=== PATIENT | male | born 1935 | race Caucasian/White ===

== ENCOUNTER 2020-10-22 13:14 | Emergency (ER) | payer MEDICARE, SELFPAY ==
[2020-10-22 13:39] VITALS: BP 135/72; PULSE 69; RESP 16; TEMP 36.7; O2SAT 97
[2020-10-22 14:45] LABS: Basophils Absolute Auto 0.1 K/mm3 (0.0-0.1); Basophils Percent Auto 0.9 % (0.2-1.2); Eosinophils Absolute Auto 0.2 K/mm3 (0-0.3); Eosinophils Percent Auto 1.8 % (0-4.4); Hematocrit 45.5 % (42.0-52.0); Hemoglobin 14.8 g/dL (14.0-18.0); Immature Granulocyte Absolute 0.04 K/mm3 (0.00-0.031); Immature Granulocyte Percent A 0.4 % (0-0.5); Lymphocytes Absolute Auto 0.85 K/mm3 (0.9-3.2); Lymphocytes Percent Auto 9.3 % (18.3-44.2); Mean Corpuscular HGB Conc 32.5 g/dl (32-36); Mean Corpuscular Hemoglobin 29.7 pg (26-34); Mean Corpuscular Volume 91.2 fl (80-100); Monocytes Absolute Auto 1.2 K/mm3 (0.1-0.6); Monocytes Percent Auto 13.4 % (2.6-8.5); Neutrophils Absolute Auto 6.8 K/mm3 (1.3-6.7); Neutrophils Percent Auto 74.2 % (45.5-73.1); Platelet Count Result 243 k/mm3 (150-375); Red Blood Count 4.99 M/mm3 (4.6-6.20); White Blood Count 9.1 K/mm3 (4.5-10.0)
[2020-10-22 14:53] LABS: Lactic Acid Reflex 2.7 mmol/L (0.7-2.1)
[2020-10-22 15:00] LABS: Alanine Aminotransferase 16 U/L (4-50); Albumin Level 4.1 g/dL (3.5-5.1); Alkaline Phosphatase 171 U/L (38-126); Anion Gap 12 mmol/L (8-16); Aspartate Amino Transferase 41 U/L (17-59); Blood Urea Nitrogen 23 mg/dL (9-20); CRP 2.6 mg/dL (<1.0); Calcium 9.7 mg/dL (8.4-10.2); Carbon Dioxide 24 mmol/L (22-30); Chloride 102 mmol/L (98-107); Estimated CRCL calculation 56 ml/min; Estimated Glomerular Filt Rate > 60; Glucose 87 mg/dL (75-110); Potassium 4.1 mmol/L (3.4-5.0); Sodium 138 mmol/L (137-145)
[2020-10-22 15:04] LABS: NT Pro B Type Natriuretic Pept 8930 pg/mL (5-100)
--- NOTE | 2020-10-22 16:12 | ED.WOUNDLAC ---
HPI - Wound/Laceration General Chief Complaint: Wound/Laceration Stated Complaint: bilateral leg swelling Time Seen by Provider: 10/22/20 13:21 Source: patient and family Mode of arrival: ambulatory Limitations: no limitations History of Present Illness HPI narrative: 85-year-old with a history of diabetes was brought in by with complaints of ulcers to both lower extremities. Patient states that he has been having these for last several months. Has not seen his primary doctor. She denies any fever or chills. reports that the incident was initially on the right leg and now it is coming onto the left leg. No history of trauma. Onset (ago): month(s) (5) Extremity Location: Bilateral: lower leg Associated symptoms: none Related Data Allergies Allergy/AdvReac Type Severity Reaction Status Date / Time dapagliflozin Allergy Unknown increased Verified 10/22/20 13:45 blood sugar Review of Systems Review of Systems: All systems reviewed & are unremarkable except as noted in HPI and below Constitutional: Constitutional: Reports no additional constitutional complaints Eyes: Eyes: Reports no additional eye complaints ENT: Reports system reviewed and no additional complaints, except as documented Cardiovascular: Cardiovascular: Reports no additional cardiovascular complaints Respiratory: Respiratory: Reports no additional respiratory complaints Musculoskeletal: Musculoskeletal: Reports as per HPI Integumentary/Breasts: Skin/Breast: Reports as per HPI Neurologic: Reports system reviewed and no additional complaints, except as documented Endocrine: Endocrine: Reports no additional endocrine complaints PMFSH Social History Social History Social History: Smoking status: Never smoker Second hand tobacco smoke exposure: No Alcohol intake: current Drinks per week: 2 Substance use: never Substance use type: does not use Gender identity (if verbalized by the patient): Male Exam Narrative: Exam Narrative: GENERAL: Well-appearing, well-nourished, and in no acute distress. HEAD: Normocephalic, atraumatic. EYES: PERRLA and EOMI. ENT: Nares clear, no rhinorrhea or epistaxis. Mucous membranes moist. NECK: Supple. CHEST: Clear to auscultation. No respiratory distress. HEART: Regular rate and rhythm. No murmur heard. Normal peripheral pulses. ABDOMEN: Soft, nontender, nondistended, normal active bowel sounds. EXTREMITIES 3+ edema. Has multiple open wounds on the right lower extremity with yellowish crater., On the left there is 1 area which is open with serous drainage SKIN: Warm, dry, no rash. NEURO: No focal deficits. Alert and oriented x3. PSYCH: Normal mood and affect. Course Course Emergency Course: Inform patient and his family about his lab work. Wound care nurse was consulted. We did obtain wound cultures. Silver gel was applied followed by Jeff wraps on both lower extremities he is advised to follow-up with Dr. Rojas and wound care. Vital Signs Vital signs: Vital Signs Temperature 36.7 C 10/22/20 13:39 Pulse Rate 69 10/22/20 13:39 Respiratory Rate 16 10/22/20 13:39 Blood Pressure 135/72 10/22/20 13:39 Pulse Oximetry 97 10/22/20 13:39 Temperature 36.7 C 10/22/20 13:39 Pulse Rate 69 10/22/20 13:39 Respiratory Rate 16 10/22/20 13:39 Blood Pressure 135/72 10/22/20 13:39 Pulse Oximetry 97 10/22/20 13:39 MDM - Wound/Laceration Lab Data Result diagrams: 10/22/20 14:36 10/22/20 14:36 Labs: Lab Results 10/22/20 10/22/20 10/22/20 Range/Units 14:36 14:36 14:36 WBC 9.1 (4.5-10.0) K/mm3 RBC 4.99 (4.6-6.20) M/mm3 Hgb 14.8 (14.0-18.0) g/dL Hct 45.5 (42.0-52.0) % MCV 91.2 (80-100) fl MCH 29.7 (26-34) pg MCHC 32.5 (32-36) g/dl RDW 14.0 (11.5-14.5) % Plt Count 243 (150-375) k/mm3 MPV 10.0 (7.4-10.4) fl I
[2020-10-22 17:05] VITALS: BP 113/85; PULSE 87; RESP 16
[2020-10-22 17:41] LABS: Reflex Lactic Acid Yes or No Add Lactic
== END 2020-10-22 17:05 | disposition home or self-care (01) ==
PROVIDERS: Emergency Provider Family Medicine; PCP Family Medicine
DX: I83.018 Varicose veins of right lower extremity with ulcer other part of lower leg (principal); I83.028 Varicose veins of left lower extremity with ulcer other part of lower leg; L97.819 Non-pressure chronic ulcer of other part of right lower leg with unspecified severity; L97.829 Non-pressure chronic ulcer of other part of left lower leg with unspecified severity; E11.9 Type 2 diabetes mellitus without complications
CPT/HCPCS: 36415; 80053; 83605; 83880; 85025; 86140; 87040; 87070; 87077; 87205; 99282; 99283

== ENCOUNTER 2020-10-29 16:28 | Inpatient (IN) | payer MEDICARE, SELFPAY ==
--- NOTE | ~2020-10-29 | XR_ITS ---
EXAMINATION: XR tibia fibula RT 2V DATE: 10/29/2020 17:29 INDICATION: Posterior wound and weeping at the right lower leg. TECHNIQUE: AP and lateral views of the right lower leg were obtained. COMPARISON: None. FINDINGS: Bone alignment is normal. No fracture. Chondrocalcinosis at the medial and lateral compartments of th e right knee with mild tricompartmental osteoarthritis at the right knee. Additional mild osteoarthri tis at the right ankle and calcaneocuboid joints. Moderate-sized plantar calcaneal spur with mild ent hesopathic ossification at the proximal plantar aponeurosis and distal Achilles tendon. No cortical e rosions. Extensive scattered vascular calcifications extending from the popliteal artery through the arteries in the proximal to mid right calf. No soft tissue gas or radiopaque foreign bodies. Soft tis naveed swelling with skin thickening anterior and lateral to the right ankle and extending over the dors um of the foot. IMPRESSION: 1. No acute osseous abnormality, soft tissue gas or radiopaque foreign bodies. 2. Chondrocalcinosis at the right knee with mild polyarticular osteoarthritis at the right knee, ankl e and calcaneocuboid joints. Reviewed, dictated and finalized at location A. IMPRESSION: 1. No acute osseous abnormality, soft tissue gas or radiopaque foreign bodies. 2. Chondrocalcinosis at the right knee with mild polyarticular osteoarthritis a t the right knee, ankle and calcaneocuboid joints.
--- NOTE | ~2020-10-29 | XR_ITS ---
EXAMINATION: XR chest 2V DATE: 11/02/2020 15:31 INDICATION: Shortness of breath and leukocytosis TECHNIQUE: frontal and lateral views of the chest were obtained. COMPARISON: Chest radiograph dated 10/29/2020 FINDINGS: Cardiomegaly. Tiny bilateral pleural effusions along with adjacent minimal dependent atelectasis seen at the posterior sulci on the lateral projection. No pulmonary edema or pneumothorax. IMPRESSION: 1. Tiny bilateral pleural effusions with minimal dependent atelectasis in the posterior lung bases. 2. Cardiomegaly. Reviewed, dictated and finalized at location A. IMPRESSION: 1. Tiny bilateral pleural effusions with minimal dependent atelectasis in the p osterior lung bases. 2. Cardiomegaly.
--- NOTE | ~2020-10-29 | XR_ITS ---
EXAMINATION: XR chest 1V portable DATE: 10/29/2020 18:30 INDICATION: Congestive heart failure TECHNIQUE: frontal view of the chest was obtained. COMPARISON: None FINDINGS: Cardiomegaly with pulmonary vascular congestion and bilateral perihilar opacities as well as retrocar diac opacities at the left lower lung zone. No pneumothorax or definitive pleural effusion. IMPRESSION: 1. Cardiomegaly with pulmonary vascular congestion. 2. Opacities in the bilateral perihilar regions and left lower lung zone which could represent atelec tasis, pneumonia or mild pulmonary edema. Reviewed, dictated and finalized at location A. IMPRESSION: 1. Cardiomegaly with pulmonary vascular congestion. 2. Opacities in the bilateral perihilar regions and left lower lung zone which could represent atelectasis, pneumonia or mild pulmonary edema.
[2020-10-29 16:35] VITALS: BP 118/63; PULSE 74; RESP 18; TEMP 36.1; O2SAT 100
[2020-10-29 16:46] LABS: Basophils Absolute Auto 0.1 K/mm3 (0.0-0.1); Basophils Percent Auto 0.7 % (0.2-1.2); Eosinophils Absolute Auto 0.1 K/mm3 (0-0.3); Eosinophils Percent Auto 0.8 % (0-4.4); Hematocrit 46.5 % (42.0-52.0); Immature Granulocyte Absolute 0.05 K/mm3 (0.00-0.031); Immature Granulocyte Percent A 0.6 % (0-0.5); Lymphocytes Percent Auto 5.5 % (18.3-44.2); Mean Corpuscular HGB Conc 32.3 g/dl (32-36); Mean Corpuscular Hemoglobin 29.9 pg (26-34); Mean Corpuscular Volume 92.6 fl (80-100); Mean Platelet Volume 9.4 fl (7.4-10.4); Monocytes Absolute Auto 1.1 K/mm3 (0.1-0.6); Monocytes Percent Auto 11.8 % (2.6-8.5); Neutrophils Absolute Auto 7.3 K/mm3 (1.3-6.7); Neutrophils Percent Auto 80.6 % (45.5-73.1); Platelet Count Result 232 k/mm3 (150-375); Red Blood Count 5.02 M/mm3 (4.6-6.20); White Blood Count 9.1 K/mm3 (4.5-10.0)
[2020-10-29 16:57] LABS: INR 1.2; Prothrombin Time 15.5 Seconds (11.1-14.7)
--- NOTE | 2020-10-29 17:18 | ED.WOUNDLAC ---
HPI - Wound/Laceration General Chief Complaint: Wound/Laceration Stated Complaint: Sent by PCP Time Seen by Provider: 10/29/20 17:11 History of Present Illness HPI narrative: 85 yo male w/ h/o DM, htn, bph presents from home for cellulitis. He ulceration of nearly the entire right lower leg with some erythema of the surrounding skin. He reports that he was here 6 days ago for the same. He was discharged on PO antibiotics and refered to wound care. He was told that he could not go to wound care until he had gotten a referal from his PCP. He went there today and they sent him back in. The patient reports that his PCP was concerned to due lower extremity edema. He does report extensive swelling of the bilateral extremities and abdominal wall. No CP, SOB. Related Data Allergies Allergy/AdvReac Type Severity Reaction Status Date / Time dapagliflozin Allergy Unknown increased Verified 10/29/20 15:32 blood sugar Review of Systems Review of Systems: All systems reviewed & are unremarkable except as noted in HPI and below Constitutional: Constitutional: Denies chills, Denies fever(s) and Denies weakness ENT: Reports system reviewed and no additional complaints, except as documented Cardiovascular: Cardiovascular: Denies chest pain Respiratory: Respiratory: Denies dyspnea Gastrointestinal: Gastrointestinal: Denies abdominal pain, Denies nausea and Denies vomiting Genitourinary: Genitourinary: Denies hematuria and Denies dysuria Musculoskeletal: Musculoskeletal: Reports back pain Integumentary/Breasts: Skin/Breast: Reports as per HPI Neurologic: Denies dizziness and Denies weakness Endocrine: Endocrine: Denies polydipsia [facility] Past Medical History Medical History Diabetes mellitus HTN (hypertension) Social History Social History Social History: Smoking status: Never smoker Second hand tobacco smoke exposure: No Alcohol intake: current Drinks per week: 2 Substance use: never Substance use type: does not use Gender identity (if verbalized by the patient): Male Exam Const: General: no acute distress and alert Nutritional Appearance: obese Orientation/consciousness: patient oriented x3 HENMT: Head: normal to inspection Neck: Neck: normal visual inspection Chest: Chest palpation & inspection: normal inspection of the chest Resp: Effort & Inspection: normal respiratory effort Auscultation: clear to auscultation bilaterally Cardio: Rate: regular rate Rhythm: regular rhythm GI: GI Palp: Yes Soft to palpation and No Tenderness to palpation present (GI) Other: pitting edema of abdominal wall : Male General Exam: Yes edema diffuse and No perineal induration Penis: Yes erythematous and Yes Localized penile swelling present Scrotum: edematous Skin: Other: extensive erosions of right lower extremity. Sensation grossly intact. Neuro: General: patient oriented x3 and moves all extremities Course Vital Signs Vital signs: Vital Signs Temperature 36.1 C L 10/29/20 16:35 Pulse Rate 74 10/29/20 16:35 Respiratory Rate 18 10/29/20 16:35 Blood Pressure 118/63 10/29/20 16:35 Pulse Oximetry 100 10/29/20 16:35 Temperature 36.1 C L 10/29/20 16:35 Pulse Rate 74 10/29/20 19:31 Respiratory Rate 18 10/29/20 19:31 Blood Pressure 118/65 10/29/20 19:31 Pulse Oximetry 98 10/29/20 19:31 MDM - Wound/Laceration MDM Narrative Medical decision making narrative: He has extensive cellulitis of the right lower leg and anasarca. He will need admission for IV antibiotics. He would also benefit from diuresis once the infection is under better control. At this point he has a mildly elevated lactic acid, which indicates poor perfusion, so I am hesitant to give diuretics at this time. After reviewing the chest x-ray I will give him a single dose of lasix and al
[2020-10-29 17:37] LABS: Lactic Acid Reflex 2.2 mmol/L (0.7-2.1)
[2020-10-29 17:40] LABS: Anion Gap 12 mmol/L (8-16); Blood Urea Nitrogen 25 mg/dL (9-20); Calcium 9.5 mg/dL (8.4-10.2); Carbon Dioxide 24 mmol/L (22-30); Chloride 102 mmol/L (98-107); Estimated CRCL calculation 53 ml/min; Estimated Glomerular Filt Rate > 60; Glucose 142 mg/dL (75-110); Potassium 4.6 mmol/L (3.4-5.0); Sodium 138 mmol/L (137-145)
--- NOTE | 2020-10-29 17:41 | PC.NURSE ---
Pt saw PCP today, was told to come to ED for eval there's fluid on the heart , has not started at wound clinic yet. Reports BLE cellulitis, sharp pains for months , +weeping. Bilat testicles also noted to be swollen and cellulitic-appearing, Dr. Arellano aware and assessed, pt denies urinary symptoms (pt incontinent of urine and underpants were soiled on arrival, clothing removed)
[2020-10-29 17:46] LABS: NT Pro B Type Natriuretic Pept 7140 pg/mL (5-100)
--- NOTE | 2020-10-29 18:11 | PC.NURSE ---
Rn attempted IV 2x with no success.
[2020-10-29 18:38] LABS: Alanine Aminotransferase 18 U/L (4-50); Albumin Level 3.9 g/dL (3.5-5.1); Alkaline Phosphatase 175 U/L (38-126); Aspartate Amino Transferase 39 U/L (17-59); Bilirubin,Total 0.8 mg/dL (0.2-1.3)
[2020-10-29 18:50] LABS: NT Pro B Type Natriuretic Pept 7020 pg/mL (5-100); Troponin I 0.017 ng/mL (0.000-0.034)
[2020-10-29] MEDS: FUROSEMIDE INJ 40 MG/4 ML VIAL IV PUSH (19:29)
[2020-10-29 19:31] VITALS: BP 118/65; PULSE 74; RESP 18; O2SAT 98
[2020-10-29 19:44] LABS: Reflex Lactic Acid Yes or No Add Lactic
[2020-10-29 20:36] LABS: Lactic Acid 2.3 mmol/L (0.7-2.1)
--- NOTE | 2020-10-29 21:44 | ADMGEN ---
This patient, Jean-Pierre Sandra, was admitted to Medical Room 256-01. Patient/family oriented to hospital policies and general routines including ID bracelet, bed and alarms, visiting hours, pain management, procedures, bathroom and other care routines, personal items, smoking policy, room service/diet, and visiting hours. Information on how to activate the Rapid Response Team has been discussed. Patient/Family are encouraged to report perceived risks to care and to ask questions if they do not understand what they are told or what they should do.
[2020-10-29 22:00] VITALS: BP 165/81; PULSE 86; RESP 20; TEMP 36.6; O2SAT 97
[2020-10-29] MEDS: TOLNAFTATE 1% POWDER 45 GM BTL 1 APPLIC TOPICAL (22:02)
[2020-10-29 23:01] LABS: Glucose Point of Care 198 mg/dl (65-105)
[2020-10-29 23:23] VITALS: BMI 30.2
[2020-10-30] VITALS (12 sets, daily range): BP systolic 118–127; BP diastolic 62–64; PULSE 69–83; RESP 16–20; TEMP 35.9–36.3; O2SAT 92–94; BMI 30.2
--- NOTE | 2020-10-30 | ECHO_ITS ---
Patient Info Name: Jean-Pierre Sandra Age: 85 years : 1935 Gender: Male Ht: 71 in Wt: 216 lbs BSA: 2.24 m2 HR: 73 bpm BP: 124 / 62 mmHg Technical Quality: Good Exam Date: 10/30/2020 2:28 PM Exam Location: [facility] Patient Status: Inpatient Admit Date: 10/29/2020 Staff Ordering Physician: Jenaro Adam MD Surgical Garment Assembler: Kodi Weller RDCS, RT Attending Provider: Michelle Prakash PA-C Referring Physician: Kia GUZMAN; Exam Type: CA echo doppler color flow Study Info Indications R06.02 - Shortness of breath Complete two-dimensional, color flow and Doppler transthoracic echocardiogram is performed. Summary 1. Complete two-dimensional, color flow and Doppler transthoracic echocardiogram is performed. 2. Left ventricular chamber dimension is mildly enlarged. 3. Left ventricular systolic function is preserved, estimated at 50-55%. 4. There is mildly increased left ventricular wall thickness. 5. The left ventricular diastolic function is abnormal. 6. E/e' 16 is elevated. 7. Right ventricular systolic function is moderately reduced and with abnormal TAPSE 1.5 cm. 8. Right ventricular chamber dimension is moderately enlarged. 9. Left atrial chamber dimension is moderately enlarged. 10. Right atrial chamber dimension is moderately enlarged. 11. There is moderate aortic valve sclerosis. 12. There is mild aortic valve stenosis with a peak velocity of 254 cm/s, mean gradient of 7 mmHg, and aortic valve area of 1.4 cm2. 13. There is no aortic valve regurgitation. 14. The mitral valve has moderately calcified annulus. 15. There is mild mitral valve regurgitation. 16. The tricuspid valve leaflets are mildly thickened. 17. There is moderate tricuspid valve regurgitation. 18. Severe pulmonary hypertension, estimated pulmonary arterial systolic pressure is 67 mmHg. 19. Dilated inferior vena cava with <50% collapse upon inspiration consistent with significantly elevated right atrial pressure, 15 mmHg. 20. There is trivial pericardial effusion. Left Ventricle E/e' 16 is elevated. Left ventricular chamber dimension is mildly enlarged. Left ventricular systolic function is preserved, estimated at 50-55%. There is mildly increased left ventricular wall thickness. The left ventricular diastolic function is abnormal. Right Ventricle Right ventricular systolic function is moderately reduced and with abnormal TAPSE 1.5 cm. Right ventricular chamber dimension is moderately enlarged. Left Atria Left atrial chamber dimension is moderately enlarged. Right Atria Right atrial chamber dimension is moderately enlarged. Aortic Valve The aortic valve is trileaflet. There is moderate aortic valve sclerosis. There is mild aortic valve stenosis with a peak velocity of 254 cm/s, mean gradient of 7 mmHg, and aortic valve area of 1.4 cm2. There is no aortic valve regurgitation. Pulmonic Valve There is no pulmonic regurgitation. Mitral Valve The mitral valve has moderately calcified annulus. There is no mitral valve stenosis. There is mild mitral valve regurgitation. Tricuspid Valve The tricuspid valve leaflets are mildly thickened. There is moderate tricuspid valve regurgitation. Severe pulmonary hypertension, estimated pulmonary arterial systolic pressure is 67 mmHg. Pericardium/Pleural There is trivial pericardial effusion. Inferior Vena Cava Dilated inferior vena cava with <50% collapse upon inspiration consistent with significantly elevated right a
[2020-10-30] MEDS: HYDROcodone/acetaminophen (*CRX) 7.5-325 MG TABLET 1 TAB PO ×2 (01:01→21:07)
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
[2020-10-30 07:53] LABS: Glucose Point of Care 132 mg/dl (65-105)
[2020-10-30] MEDS: amLODIPine BESYLATE 5 MG TABLET PO (08:00)
[2020-10-30] MEDS: lisinopriL 10 MG TABLET PO (08:00)
[2020-10-30] MEDS: FUROSEMIDE INJ 40 MG/4 ML VIAL IV PUSH ×2 (08:00→16:35)
[2020-10-30] MEDS: TAMSULOSIN HCL 0.4 MG CAPSULE PO (08:00)
[2020-10-30 09:10] LABS: Hemoglobin A1C 6.1 % (<5.7)
[2020-10-30] MEDS: INSULIN ASPART (*BKC) 100 UNITS/ML SUB-Q ×3 (09:18→18:07)
[2020-10-30] MEDS: SILVERGEL (ELTA) 45 ML 1 APPLIC TOPICAL (12:41)
[2020-10-30 12:49] LABS: Basophils Percent Auto 0.4 % (0.2-1.2); Eosinophils Percent Auto 0.3 % (0-4.4); Hematocrit 43.6 % (42.0-52.0); Hemoglobin 14.2 g/dL (14.0-18.0); Immature Granulocyte Absolute 0.06 K/mm3 (0.00-0.031); Immature Granulocyte Percent A 0.6 % (0-0.5); Lymphocytes Absolute Auto 0.44 K/mm3 (0.9-3.2); Lymphocytes Percent Auto 4.5 % (18.3-44.2); Mean Corpuscular HGB Conc 32.6 g/dl (32-36); Mean Corpuscular Hemoglobin 29.9 pg (26-34); Mean Corpuscular Volume 91.8 fl (80-100); Mean Platelet Volume 9.7 fl (7.4-10.4); Monocytes Absolute Auto 1.3 K/mm3 (0.1-0.6); Monocytes Percent Auto 12.9 % (2.6-8.5); Neutrophils Percent Auto 81.3 % (45.5-73.1); Platelet Count Result 222 k/mm3 (150-375); Red Blood Count 4.75 M/mm3 (4.6-6.20); White Blood Count 9.8 K/mm3 (4.5-10.0)
[2020-10-30 13:02] LABS: Alanine Aminotransferase 16 U/L (4-50); Albumin Level 3.8 g/dL (3.5-5.1); Alkaline Phosphatase 155 U/L (38-126); Anion Gap 12 mmol/L (8-16); Aspartate Amino Transferase 35 U/L (17-59); Bilirubin,Total 1.1 mg/dL (0.2-1.3); Blood Urea Nitrogen 21 mg/dL (9-20); Calcium 9.4 mg/dL (8.4-10.2); Carbon Dioxide 25 mmol/L (22-30); Chloride 101 mmol/L (98-107); Estimated CRCL calculation 65 ml/min; Estimated Glomerular Filt Rate > 60; Glucose 111 mg/dL (75-110); Potassium 3.7 mmol/L (3.4-5.0); Sodium 138 mmol/L (137-145)
[2020-10-30 13:05] LABS: Lactic Acid Reflex 1.8 mmol/L (0.7-2.1)
[2020-10-30 13:11] LABS: Glucose Point of Care 95 mg/dl (65-105)
--- NOTE | 2020-10-30 13:29 | ECG_ITS ---
Measurements Intervals [place] Rate: 73 P: VA: 0 QRS: -83 QRSD: 164 T: 154 QT: 466 QTc: 514 Interpretive Statements ACCELERATED JUNCTIONAL RHYTHM ATRIAL PREMATURE COMPLEXES LEFT AXIS DEVIATION RIGHT BUNDLE BRANCH BLOCK ABNORMAL ECG Electronically Signed On 10-30-2020 14:05:59 CDT by Kan Sampson D.O.
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
[2020-10-30 14:04] LABS: Magnesium 1.8 mg/dL (1.6-2.3)
--- NOTE | 2020-10-30 15:47 | PCOTNOTE ---
OT evaluation attempted. Patient declining therapy at this time, but agreeable to attempting tomorrow AM. Will attempt OT evaluation at later time.
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
[2020-10-30] MEDS: ENOXAPARIN 100 MG/ML SYRINGE SUB-Q (16:36)
[2020-10-30 17:53] LABS: Glucose Point of Care 101 mg/dl (65-105)
[2020-10-30 22:15] LABS: Glucose Point of Care 78 mg/dl (65-105)
[2020-10-31] VITALS (9 sets, daily range): BP systolic 105–124; BP diastolic 51–61; PULSE 60–88; RESP 18–22; TEMP 35.9–36.4; O2SAT 92–97
[2020-10-31] MEDS: ENOXAPARIN 100 MG/ML SYRINGE SUB-Q ×2 (01:11→14:59)
--- NOTE | 2020-10-31 01:12 | PCRCNOTE ---
Patient took off apnealink. Patient refuses to wear it.
[2020-10-31] MEDS: HYDROcodone/acetaminophen (*CRX) 7.5-325 MG TABLET 1 TAB PO (05:32)
[2020-10-31 05:46] LABS: Basophils Absolute Auto 0.1 K/mm3 (0.0-0.1); Basophils Percent Auto 0.9 % (0.2-1.2); Eosinophils Absolute Auto 0.1 K/mm3 (0-0.3); Eosinophils Percent Auto 0.5 % (0-4.4); Hematocrit 37.3 % (42.0-52.0); Hemoglobin 12.2 g/dL (14.0-18.0); Immature Granulocyte Absolute 0.07 K/mm3 (0.00-0.031); Immature Granulocyte Percent A 0.7 % (0-0.5); Lymphocytes Absolute Auto 0.89 K/mm3 (0.9-3.2); Lymphocytes Percent Auto 8.9 % (18.3-44.2); Mean Corpuscular HGB Conc 32.7 g/dl (32-36); Mean Corpuscular Volume 91.6 fl (80-100); Mean Platelet Volume 9.8 fl (7.4-10.4); Monocytes Absolute Auto 1.4 K/mm3 (0.1-0.6); Monocytes Percent Auto 14.3 % (2.6-8.5); Neutrophils Absolute Auto 7.5 K/mm3 (1.3-6.7); Neutrophils Percent Auto 74.7 % (45.5-73.1); Platelet Count Result 214 k/mm3 (150-375); Red Blood Count 4.07 M/mm3 (4.6-6.20); Red Cell Distribution Width 13.9 % (11.5-14.5)
[2020-10-31 05:53] LABS: Lactic Acid Reflex 1.2 mmol/L (0.7-2.1)
[2020-10-31 06:01] LABS: Alanine Aminotransferase 14 U/L (4-50); Alkaline Phosphatase 124 U/L (38-126); Anion Gap 7 mmol/L (8-16); Aspartate Amino Transferase 29 U/L (17-59); Blood Urea Nitrogen 27 mg/dL (9-20); CRP 3.7 mg/dL (<1.0); Calcium 8.7 mg/dL (8.4-10.2); Carbon Dioxide 27 mmol/L (22-30); Chloride 101 mmol/L (98-107); Estimated CRCL calculation 65 ml/min; Estimated Glomerular Filt Rate > 60; Glucose 106 mg/dL (75-110); Magnesium 1.6 mg/dL (1.6-2.3); Potassium 3.7 mmol/L (3.4-5.0); Sodium 135 mmol/L (137-145)
[2020-10-31 08:09] LABS: Glucose Point of Care 103 mg/dl (65-105)
[2020-10-31] MEDS: TAMSULOSIN HCL 0.4 MG CAPSULE PO (09:53)
[2020-10-31] MEDS: amLODIPine BESYLATE 5 MG TABLET PO (09:54)
[2020-10-31] MEDS: SILVERGEL (ELTA) 45 ML 1 APPLIC TOPICAL (09:54)
[2020-10-31] MEDS: FUROSEMIDE INJ 40 MG/4 ML VIAL IV PUSH ×2 (09:54→17:12)
[2020-10-31] MEDS: lisinopriL 10 MG TABLET PO (09:54)
[2020-10-31] MEDS: INSULIN ASPART (*BKC) 100 UNITS/ML SUB-Q ×3 (09:57→17:44)
[2020-10-31] MEDS: MAGNESIUM SULF 2 GM/WATER 50ML 2 GM/50 ML BAG IVPB (10:20)
[2020-10-31 12:35] LABS: Glucose Point of Care 119 mg/dl (65-105)
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
--- NOTE | 2020-10-31 15:38 | PM.PNCARD ---
Progress Note: A&P Assessment and Plan (1) Atrial fibrillation: Code(s): I48.91 - Unspecified atrial fibrillation <RADHA Chin - Last Filed: 10/31/20 16:04> Status: Acute <RADHA Chin - Last Filed: 10/31/20 16:04> Assessment and Plan: Atrial fibrillation with underlying RBBB new diagnosis, chronicity unknown. asymptomatic. Heart rate controlled without AV coby blocking agents suggestive underlying conduction system disease. CHADS2 Vasc score 5. Systemic anticoagulation advised. No plans for LE wound debridement - will initiate coumadin today as Eliquis and Xarelto are prohibitively expensive for the patient. <RADHA Chin - Last Filed: 10/31/20 16:04> (2) Heart failure with preserved ejection fraction: Code(s): I50.30 - Unspecified diastolic (congestive) heart failure <RADHA Chin - Last Filed: 10/31/20 16:04> Status: Acute <RADHA Chin - Last Filed: 10/31/20 16:04> Assessment and Plan: EF lower limits normal 50-55%. Moderate left atrial enlargement. Continue Cautious intravenous diuresis. Monitor electrolytes and renal function closely. Avoid NSAIDs. 2 g daily sodium intake. Monitor volume status closely, avoid intravascular volume depletion. symptoms are largely right-sided with evidence of severe pulmonary hypertension. <RADHA Chin - Last Filed: 10/31/20 16:04> (3) NSVT (nonsustained ventricular tachycardia): Code(s): I47.2 - Ventricular tachycardia <RADHA Chin - Last Filed: 10/31/20 16:04> Status: Acute <RADHA Chin - Last Filed: 10/31/20 16:04> Assessment and Plan: No VT noted on telemetry overnight. Continue to monitor electrolytes. Continue telemetry. <RADHA Chin - Last Filed: 10/31/20 16:04> (4) Pulmonary hypertension: Code(s): I27.20 - Pulmonary hypertension, unspecified <RADHA Chin - Last Filed: 10/31/20 16:04> Status: Acute <RADHA Chin - Last Filed: 10/31/20 16:04> Assessment and Plan: Severe. Etiology not precisely clear. Heart rate control with atrial fibrillation with lower limits normal LV function. Apnea link showed high risk for sleep disorder. Patient is to pursue sleep study as outpatient. <RADHA Chin - Last Filed: 10/31/20 16:04> (5) Cellulitis of right lower leg: Code(s): L03.115 - Cellulitis of right lower limb <RADHA Chin - Last Filed: 10/31/20 16:04> Status: Acute <RADHA Chin - Last Filed: 10/31/20 16:04> Assessment and Plan: Per primary service. <RADHA Chin - Last Filed: 10/31/20 16:04> (6) Essential (primary) hypertension: Code(s): I10 - Essential (primary) hypertension <RADHA Chin - Last Filed: 10/31/20 16:04> Status: Acute <RADHA Chin - Last Filed: 10/31/20 16:04> Assessment and Plan: Controlled at present. continue medical therapy. <RADHA Chin - Last Filed: 10/31/20 16:04> (7) Diabetes mellitus: Code(s): E11.9 - Type 2 diabetes mellitus without complications <RADHA Chin - Last Filed: 10/31/20 16:04> Status: Acute <RADHA Chin - Last Filed: 10/31/20 16:04> Assessment and Plan: Per primary service. <RADHA Chin - Last Filed: 10/31/20 16:04> Additional Plan Attending addendum: I agree with the above documentation and plan of care as outlined. <Garrett York MD - Last Filed: 10/31/20 17:55> Subjective Date/time seen: 10/31/20 15:38 <Yana Hernandez APN-Masoud - Last Filed: 10/31/20 16:04> Interval history: Cardiology follow up for atrial fibrillation Date of service 10/31/20: Patient is drowsy today - nods off during conversation. at the bedside. I had a lengthy conversat
[2020-10-31 16:13] LABS: INR 1.3
[2020-10-31] MEDS: WARFARIN (*PBKC) 2 MG TABLET PO (17:12)
[2020-10-31 17:44] LABS: Glucose Point of Care 139 mg/dl (65-105)
[2020-10-31 20:55] LABS: Glucose Point of Care 182 mg/dl (65-105)
[2020-10-31 21:27] LABS: Vancomycin Trough 10.4 ug/mL (10.0-20.0)
[2020-10-31 23:57] LABS: Hematocrit 29.1 % (42.0-52.0); Hemoglobin 9.6 g/dL (14.0-18.0)
[2020-11-01] VITALS (17 sets, daily range): BP systolic 102–137; BP diastolic 42–90; PULSE 70–91; RESP 17–24; TEMP 36–37.2; O2SAT 92–99
--- NOTE | 2020-11-01 00:47 | PC.NURSE ---
Stat H&H called to [facility].
[2020-11-01 00:57] LABS: IFOB Positive Control Positive; Immunochemical Fecal Occult Bl Positive (N)
[2020-11-01 04:39] LABS: Basophils Absolute Auto 0.1 K/mm3 (0.0-0.1); Basophils Percent Auto 0.4 % (0.2-1.2); Eosinophils Percent Auto 0.3 % (0-4.4); Hematocrit 26.5 % (42.0-52.0); Hemoglobin 8.8 g/dL (14.0-18.0); Immature Granulocyte Percent A 0.8 % (0-0.5); Lymphocytes Absolute Auto 1.25 K/mm3 (0.9-3.2); Lymphocytes Percent Auto 9.9 % (18.3-44.2); Mean Corpuscular HGB Conc 33.2 g/dl (32-36); Mean Corpuscular Hemoglobin 30.3 pg (26-34); Mean Corpuscular Volume 91.4 fl (80-100); Mean Platelet Volume 9.9 fl (7.4-10.4); Monocytes Absolute Auto 1.7 K/mm3 (0.1-0.6); Monocytes Percent Auto 13.4 % (2.6-8.5); Neutrophils Absolute Auto 9.5 K/mm3 (1.3-6.7); Neutrophils Percent Auto 75.2 % (45.5-73.1); Platelet Count Result 228 k/mm3 (150-375); Red Cell Distribution Width 13.7 % (11.5-14.5); White Blood Count 12.7 K/mm3 (4.5-10.0)
[2020-11-01 04:51] LABS: INR 1.4
[2020-11-01 05:01] LABS: Anion Gap 6 mmol/L (8-16); Blood Urea Nitrogen 49 mg/dL (9-20); CRP 3.8 mg/dL (<1.0); Calcium 8.2 mg/dL (8.4-10.2); Carbon Dioxide 27 mmol/L (22-30); Chloride 104 mmol/L (98-107); Estimated CRCL calculation 82 ml/min; Estimated Glomerular Filt Rate > 60; Glucose 152 mg/dL (75-110); Potassium 3.2 mmol/L (3.4-5.0); Sodium 137 mmol/L (137-145)
[2020-11-01 08:46] LABS: Magnesium 1.7 mg/dL (1.6-2.3)
[2020-11-01 09:14] LABS: Glucose Point of Care 185 mg/dl (65-105)
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
[2020-11-01] MEDS: PANTOPRAZOLE SODIUM IV 40 MG VIAL IV PUSH ×2 (10:04→21:16)
[2020-11-01] MEDS: SODIUM CHLORIDE 0.9% IV 250 ML 30 ML IV CONT (10:04)
[2020-11-01] MEDS: SILVERGEL (ELTA) 45 ML 1 APPLIC TOPICAL (10:05)
[2020-11-01] MEDS: FUROSEMIDE INJ 40 MG/4 ML VIAL IV PUSH ×2 (10:05→17:36)
--- NOTE | 2020-11-01 10:30 | PC.NURSE ---
To GI Lab per JOSSELINE smith intact. Report given to Alejandrina.
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
[2020-11-01] MEDS: LACTATED RINGERS 1,000 ML 150 ML IV CONT (11:04)
--- NOTE | 2020-11-01 11:10 | PCOTNOTE ---
11:10 a.m. 11/01/20: Attempted therapy session; Patient out of room; Per nursing patient off floor for procedure in GI lab; follow up as appropriate for occupational therapy session at later time/date.
--- NOTE | 2020-11-01 11:11 | WPDANESEPPF ---
Anes - Initial Pre Proc Eval Procedure: Operation Date: 11/01/20 12:30 Proposed Procedures p Esophagogastroduodenoscopy - Nicholas Waters MD Date/Time: 11/01/20 11:11 Surgeon: Michelle Prakash PA-C Pre Op Diagnosis: Cellulitis, Genital Yeast Infection, Anasarca Patient Data Age: 85 Gender: M Height: 5 ft 11 in Weight: 98.1 kg Last Vital Signs Temp 97.5 F L 11/01/20 10:53 Pulse 90 11/01/20 10:53 Resp 22 H 11/01/20 10:53 BP 137/60 11/01/20 10:53 Pulse Ox 97 11/01/20 10:53 Allergies Allergy/AdvReac Type Severity Reaction Status Date / Time dapagliflozin Allergy Unknown increased Verified 11/01/20 10:51 blood sugar Home Medications Medication Instructions Recorded Confirmed Type lancets #50 each 01/12/20 10/29/20 Rx blood sugar diagnostic #50 each 02/02/20 10/29/20 Rx sitagliptin 100 mg tablet 100 mg PO DAILY #30 tablet 02/02/20 10/29/20 Rx amoxicillin 500 mg-potassium 1 tablet PO Q12H #20 tablet 10/24/20 10/29/20 Rx clavulanate 125 mg tablet amlodipine [Norvasc] 5 mg PO DAILY 10/29/20 10/29/20 History benazepril [Lotensin] 10 mg PO DAILY 10/29/20 10/29/20 History glimepiride [Amaryl] 1 mg PO QAM 10/29/20 10/29/20 History ibuprofen [Advil] 100 mg PO BID PRN 10/29/20 10/29/20 History metformin [Glucophage] 1,000 mg PO BID 10/29/20 10/29/20 History silver [BasaDrox] 1 applic TOPICAL Q3D 10/29/20 10/29/20 History tamsulosin [Flomax] 0.4 mg PO DAILY 10/29/20 10/29/20 History Laboratory Tests 10/31/20 10/31/20 10/31/20 12:33 15:43 17:41 WBC RBC Hgb Hct MCV MCH MCHC RDW Plt Count MPV Immature Gran % (Auto) Neut % (Auto) Lymph % (Auto) [place] % (Auto) Eos % (Auto) Baso % (Auto) Lymph # (Auto) [place] # (Auto) Eos # (Auto) Baso # (Auto) Abs Immat Gran (auto) Absolute Neuts (auto) Absolute Nucleated RBC Nucleated RBC % PT 17.0 Seconds H Seconds (11.1-14.7) INR 1.3 Sodium Potassium Chloride Carbon Dioxide Anion Gap BUN Creatinine Estim Creat Clear Calc Estimated GFR Glucose POC Capillary Glucose 119 mg/dl H mg/dl 139 mg/dl H mg/dl (65-105) (65-105) Calcium Magnesium C-Reactive Protein Stl Occult Blood (IFOB) Vancomycin Trough Blood Type Antibody Screen Crossmatch 10/31/20 10/31/20 10/31/20 19:54 20:53 23:46 WBC RBC Hgb Hct MCV MCH MCHC RDW Plt Count MPV Immature Gran % (Auto) Neut % (Auto) Lymph % (Auto) [place] % (Auto) Eos % (Auto) Baso % (Auto) Lymph # (Auto) [place] # (Auto) Eos # (Auto) Baso # (Auto) Abs Immat Gran (auto) Absolute Neuts (auto) Absolute Nucleated RBC Nucleated RBC % PT INR Sodium Potassium Chloride Carbon Dioxide Anion Gap BUN Creatinine Estim Creat Clear Calc Estimated GFR Glucose POC Capillary Glucose 182 mg/dl H mg/dl (65-105) Calcium Magnesium C-Reactive Protein Stl Occult Blood (IFOB) Positive H (N) Vancomycin Trough 10.4 ug/mL ug/mL (10.0-20.0) Blood Type Antibody Screen Cros
[2020-11-01 11:13] LABS: Glucose Point of Care 205 mg/dl (65-105)
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
--- NOTE | 2020-11-01 12:53 | PC.NURSE ---
Returned from GI Lab. Report received from FILIBERTO Collazo.
[2020-11-01] MEDS: amLODIPine BESYLATE 5 MG TABLET PO (13:14)
[2020-11-01] MEDS: TAMSULOSIN HCL 0.4 MG CAPSULE PO (13:14)
[2020-11-01] MEDS: lisinopriL 10 MG TABLET PO (13:14)
[2020-11-01] MEDS: INSULIN ASPART (*BKC) 100 UNITS/ML SUB-Q ×3 (13:15→17:34)
[2020-11-01 13:21] LABS: Hematocrit 28.9 % (42.0-52.0); Hemoglobin 9.3 g/dL (14.0-18.0)
[2020-11-01 13:22] LABS: Glucose Point of Care 216 mg/dl (65-105)
[2020-11-01 13:45] LABS: Magnesium 1.7 mg/dL (1.6-2.3)
--- NOTE | 2020-11-01 16:48 | PM.PNCARD ---
Progress Note: A&P Assessment and Plan (1) Atrial fibrillation: Code(s): I48.91 - Unspecified atrial fibrillation <RADHA Chin - Last Filed: 11/01/20 16:59> Status: Acute <Yana TobyRADHA Solomon - Last Filed: 11/01/20 16:59> Assessment and Plan: Atrial fibrillation with underlying RBBB new diagnosis, chronicity unknown. asymptomatic. Heart rate controlled without AV coby blocking agents suggestive underlying conduction system disease. CHADS2 Vasc score 5. Systemic anticoagulation advised. Warfarin held due to drop in H&H and finding of multiple ulcers on EGD today. Per GI recs, anticoagulation to be held for several weeks to allow ulcers to heal. <RADHA Chin - Last Filed: 11/01/20 16:59> (2) Heart failure with preserved ejection fraction: Code(s): I50.30 - Unspecified diastolic (congestive) heart failure <RADHA Chin - Last Filed: 11/01/20 16:59> Status: Acute <RADHA Chin - Last Filed: 11/01/20 16:59> Assessment and Plan: EF lower limits normal 50-55%. Moderate left atrial enlargement. Continue cautious intravenous diuresis. Monitor electrolytes and renal function closely. Avoid NSAIDs. 2 g daily sodium intake. Monitor volume status closely, avoid intravascular volume depletion. symptoms are largely right-sided with evidence of severe pulmonary hypertension. <RADHA Chin - Last Filed: 11/01/20 16:59> (3) NSVT (nonsustained ventricular tachycardia): Code(s): I47.2 - Ventricular tachycardia <RADHA Chin - Last Filed: 11/01/20 16:59> Status: Acute <RADHA Chin - Last Filed: 11/01/20 16:59> Assessment and Plan: No VT noted on telemetry overnight. Continue to monitor electrolytes. Continue telemetry. <RADHA Chin - Last Filed: 11/01/20 16:59> (4) Pulmonary hypertension: Code(s): I27.20 - Pulmonary hypertension, unspecified <RADHA Chin - Last Filed: 11/01/20 16:59> Status: Acute <RADHA Chin - Last Filed: 11/01/20 16:59> Assessment and Plan: Severe. Etiology not precisely clear. Heart rate control with atrial fibrillation with lower limits normal LV function. Apnea link showed high risk for sleep disorder. Patient is to pursue sleep study as outpatient. <RADHA Chin - Last Filed: 11/01/20 16:59> (5) Cellulitis of right lower leg: Code(s): L03.115 - Cellulitis of right lower limb <RADHA Chin - Last Filed: 11/01/20 16:59> Status: Acute <RADHA Chin - Last Filed: 11/01/20 16:59> Assessment and Plan: Per primary service. <RADHA Chin - Last Filed: 11/01/20 16:59> (6) Essential (primary) hypertension: Code(s): I10 - Essential (primary) hypertension <RADHA Chin - Last Filed: 11/01/20 16:59> Status: Acute <RADHA Chin - Last Filed: 11/01/20 16:59> Assessment and Plan: Controlled at present. continue medical therapy. <RADHA Chin - Last Filed: 11/01/20 16:59> (7) Diabetes mellitus: Code(s): E11.9 - Type 2 diabetes mellitus without complications <RADHA Chin - Last Filed: 11/01/20 16:59> Status: Acute <RADHA Chin - Last Filed: 11/01/20 16:59> Assessment and Plan: Per primary service. <RADHA Chin - Last Filed: 11/01/20 16:59> Additional Plan Attending addendum: I have personally seen and examined the patient at bedside. I agree with the above documentation and plan of care as outlined. H&H significantly declined over the past 48 hours. Endoscopy today duodenal ulcers recommendation to delay anticoagulation for several weeks to allow the ulcerations to he will avoid aspirin and NSAIDs. Protonix 40 mg b.i.d.. No chest pain., patient denies shortness of breath. Byron
[2020-11-01 17:23] LABS: Glucose Point of Care 170 mg/dl (65-105)
[2020-11-01 21:18] LABS: Glucose Point of Care 184 mg/dl (65-105)
[2020-11-02] VITALS (9 sets, daily range): BP systolic 102–124; BP diastolic 50–59; PULSE 62–85; RESP 16–18; TEMP 36.1–36.7; O2SAT 95–99
[2020-11-02 05:51] LABS: Hematocrit 26.2 % (42.0-52.0); Hemoglobin 8.7 g/dL (14.0-18.0); Mean Corpuscular HGB Conc 33.2 g/dl (32-36); Mean Corpuscular Hemoglobin 29.8 pg (26-34); Mean Corpuscular Volume 89.7 fl (80-100); Mean Platelet Volume 9.9 fl (7.4-10.4); Platelet Count Result 212 k/mm3 (150-375); Red Blood Count 2.92 M/mm3 (4.6-6.20); Red Cell Distribution Width 14.6 % (11.5-14.5); White Blood Count 13.2 K/mm3 (4.5-10.0)
[2020-11-02 06:05] LABS: Anion Gap 7 mmol/L (8-16); Blood Urea Nitrogen 35 mg/dL (9-20); Calcium 8.1 mg/dL (8.4-10.2); Carbon Dioxide 29 mmol/L (22-30); Chloride 105 mmol/L (98-107); Estimated CRCL calculation 82 ml/min; Estimated Glomerular Filt Rate > 60; Glucose 169 mg/dL (75-110); Magnesium 1.6 mg/dL (1.6-2.3); Potassium 2.5 mmol/L (3.4-5.0); Sodium 141 mmol/L (137-145)
--- NOTE | 2020-11-02 08:56 | PM.PNCARD ---
Progress Note: A&P Assessment and Plan (1) Atrial fibrillation: Code(s): I48.91 - Unspecified atrial fibrillation Status: Acute Assessment and Plan: Atrial fibrillation with underlying RBBB new diagnosis, chronicity unknown. asymptomatic. Heart rate controlled without AV coby blocking agents suggestive underlying conduction system disease. CHADS2 Vasc score 5. Systemic anticoagulation advised. Warfarin held due to drop in H&H and finding of multiple ulcers on EGD today. Per GI recs, anticoagulation to be held for several weeks to allow ulcers to heal. (2) Heart failure with preserved ejection fraction: Code(s): I50.30 - Unspecified diastolic (congestive) heart failure Status: Acute Assessment and Plan: EF lower limits normal 50-55%. Moderate left atrial enlargement. Continue cautious intravenous diuresis. Monitor electrolytes and renal function closely. Avoid NSAIDs. 2 g daily sodium intake. Monitor volume status closely, avoid intravascular volume depletion. symptoms are largely right-sided with evidence of severe pulmonary hypertension. Will reduce his diuretics to furosemide 40 mg IV daily from twice daily (3) NSVT (nonsustained ventricular tachycardia): Code(s): I47.2 - Ventricular tachycardia Status: Acute Assessment and Plan: No VT noted on telemetry overnight. Continue to monitor electrolytes. Continue telemetry. (4) Pulmonary hypertension: Code(s): I27.20 - Pulmonary hypertension, unspecified Status: Acute Assessment and Plan: Severe. Etiology not precisely clear. Heart rate control with atrial fibrillation with lower limits normal LV function. Apnea link showed high risk for sleep disorder. Patient is to pursue sleep study as outpatient. (5) Cellulitis of right lower leg: Code(s): L03.115 - Cellulitis of right lower limb Status: Acute Assessment and Plan: Per primary service. (6) Essential (primary) hypertension: Code(s): I10 - Essential (primary) hypertension Status: Acute Assessment and Plan: Controlled at present. continue medical therapy. (7) Diabetes mellitus: Code(s): E11.9 - Type 2 diabetes mellitus without complications Status: Acute Assessment and Plan: Per primary service. Additional Plan Significant electrolyte imbalance which is being replaced appropriately by the hospitalist Subjective Date/time seen: 11/02/20 08:56 Interval history: Cardiology follow-up for atrial fibrillation. Date of service 11/01/2020: Patient is feeling weak today. He developed melena last night and continued to have melenic stools throughout the night. GI was consulted and he went to the GI lab today for EGD. Multiple benign ulcers were visualized. Warfarin has been held. Date of service 11/02/2020: No chest pain. No shortness of breath. No further bleeding Review of Systems Review of Systems: All systems reviewed & are unremarkable except as noted in HPI and below Constitutional: Constitutional: Reports as per HPI, Reports no additional constitutional complaints, Denies excessive sweating, Reports fatigue, Reports lethargy and Reports weakness Eyes: Eyes: Reports as per HPI and Reports no additional eye complaints ENT: Reports system reviewed and no additional complaints, except as documented and Reports as per HPI Cardiovascular: Cardiovascular: Reports as per HPI, Reports no additional cardiovascular complaints, Denies chest pain, Denies diaphoresis, Reports pedal edema, Reports leg edema, Denies lightheadedness, Denies palpitations, Reports dyspnea and Reports dyspnea on exertion Respiratory: Respiratory: Reports as per HPI, Reports no additional respiratory complaints, Denies cough, Reports dyspnea, Reports dyspnea on exertion and Denies wheezing Gastrointestinal: Gastrointestinal: Reports as per HPI, Reports no additional gastrointestinal complaints, Denies
[2020-11-02 09:07] LABS: Glucose Point of Care 211 mg/dl (65-105)
[2020-11-02] MEDS: amLODIPine BESYLATE 5 MG TABLET PO (09:12)
[2020-11-02] MEDS: lisinopriL 10 MG TABLET PO (09:12)
[2020-11-02] MEDS: POTASSIUM CHLORIDE 20 MEQ TABLET 60 MEQ PO (09:12)
[2020-11-02] MEDS: TAMSULOSIN HCL 0.4 MG CAPSULE PO (09:12)
[2020-11-02] MEDS: INSULIN ASPART (*BKC) 100 UNITS/ML SUB-Q ×4 (09:15→17:24)
[2020-11-02] MEDS: PANTOPRAZOLE SODIUM IV 40 MG VIAL IV PUSH ×2 (09:18→20:55)
[2020-11-02] MEDS: FUROSEMIDE INJ 40 MG/4 ML VIAL IV PUSH (09:18)
[2020-11-02] MEDS: SILVERGEL (ELTA) 45 ML 1 APPLIC TOPICAL (09:19)
--- NOTE | 2020-11-02 11:30 | WPDGICN ---
Assessment and Plan Assessment and plan (1) Duodenal ulcer due to nonsteroidal anti-inflammatory drug (NSAID): Code(s): K26.9 - Duodenal ulcer, unspecified as acute or chronic, without hemorrhage or perforation; T39.395A - Adverse effect of other nonsteroidal anti-inflammatory drugs [NSAID], initial encounter Status: Acute Assessment and Plan: Duodenal ulcer peers be related to nonsteroidal anti-inflammatory agent use. Biopsy for H pylori JULIETA testing initially negative. Plan for proton pump inhibitor therapy. Avoid nonsteroidal anti-inflammatory agents. Advance diet as tolerated. Because of recent bleeding would allow several weeks to allow healing of this ulcer before restarting anticoagulation. (2) Anemia due to blood loss: Code(s): D50.0 - Iron deficiency anemia secondary to blood loss (chronic) Status: Acute Assessment and Plan: Hemoglobin stable. No additional bleeding reported. Would suggest monitoring CBC intermittently after discharge. (3) Melena: Code(s): K92.1 - Melena Status: Acute Assessment and Plan: Melena resolved along with GI bleeding no additional melena reported. (4) Heart failure with preserved ejection fraction: Code(s): I50.30 - Unspecified diastolic (congestive) heart failure Status: Acute (5) Atrial fibrillation: Code(s): I48.91 - Unspecified atrial fibrillation Status: Acute GI Consult Note Consult date/time: 11/02/20 11:30 HPI: Jean-Pierre Sandra is a 85 year old male Comfortable this morning. Tolerating diet. Denies abdominal pain. No additional bleeding reported. Review of Systems Review of Systems: All systems reviewed & are unremarkable except as noted in HPI and below PMFSH Past Medical History Medical History Diabetes mellitus HTN (hypertension) Family History Family History Other Unknown family medical history Social History Social History Social History: Smoking status: Never smoker Second hand tobacco smoke exposure: No Alcohol intake: current Drinks per week: 2 Substance use: never Substance use type: does not use Gender identity (if verbalized by the patient): Male Spiritual care concerns: No Meds Home Medications and Allergies Home Medications Medication Instructions Recorded Confirmed Type lancets #50 each 01/12/20 10/29/20 Rx blood sugar diagnostic #50 each 02/02/20 10/29/20 Rx sitagliptin 100 mg tablet 100 mg PO DAILY #30 tablet 02/02/20 10/29/20 Rx amoxicillin 500 mg-potassium 1 tablet PO Q12H #20 tablet 10/24/20 10/29/20 Rx clavulanate 125 mg tablet amlodipine [Norvasc] 5 mg PO DAILY 10/29/20 10/29/20 History benazepril [Lotensin] 10 mg PO DAILY 10/29/20 10/29/20 History glimepiride [Amaryl] 1 mg PO QAM 10/29/20 10/29/20 History ibuprofen [Advil] 100 mg PO BID PRN 10/29/20 10/29/20 History metformin [Glucophage] 1,000 mg PO BID 10/29/20 10/29/20 History silver [BasaDrox] 1 applic TOPICAL Q3D 10/29/20 10/29/20 History tamsulosin [Flomax] 0.4 mg PO DAILY 10/29/20 10/29/20 History Allergies Allergy/AdvReac Type Severity Reaction Status Date / Time dapagliflozin Allergy Unknown increased Verified 11/01/20 10:51 blood sugar Vital Signs Vital Signs - 24 hr 11/01/20 12:02 11/01/20 12:12 11/01/20 12:22 Temperature Pulse Rate 79 73 83 Respiratory Rate 24 H 20 20 Blood Pressure 112/90 113/62 134/75 Pulse Oximetry 92 93 94 11/01/20 14:00 11/01/20 20:00 11/01/20 20:30 Temperature 97.7 F 96.8 F L Pulse Rate 80 76 76 Respiratory Rate 17 18 18 Blood Pressure 123/42 L 130/44 L Pulse Oximetry 96 99 99 11/02/20 00:00 11/02/20 04:00 11/02/20 05:52 Temperature 97.0 F L Pulse Rate 71 85 80 Respiratory Rate 16 Blood Pressure 124/56 L Pulse Oxime
[2020-11-02] MEDS: MAGNESIUM SULFATE 3GM/D5W100ML 3 GM/100 ML BAG IVPB (12:01)
[2020-11-02 13:15] LABS: Potassium 3.2 mmol/L (3.4-5.0)
--- NOTE | 2020-11-02 13:15 | PM.IMPN ---
Progress Note: A&P Assessment and Plan (1) Anemia due to blood loss: Code(s): D50.0 - Iron deficiency anemia secondary to blood loss (chronic) Status: Acute Assessment and Plan: Patient's hemoglobin was normal on arrival and dropped slightly on 10/31/2020. Then that evening, the patient began having melenic stools and had a positive IFOB. Patient's anticoagulation which consisted of Lovenox for atrial fibrillation and 1 dose of 2 mg Coumadin were put on hold. H&H was checked which showed a drop of 2-1/2 point to 9.6. Repeat H&H 5 hours later showed hemoglobin of 8.8 and continued melenic stools. The patient was given 1 unit of PRBCs 11/01/20, with improvement of H&H 9.3/28.9%. H&H this morning stable at 8.7/26%. No more GI bleeding. PPI initiated IV 40 mg q.12. Anticoagulations on hold for a few weeks. Patient placed NPO. GI consulted for further evaluation recommendations on possible EGD today. Will continue monitoring H&H, transfuse as needed. (2) Melena: Code(s): K92.1 - Melena Status: Acute Assessment and Plan: See above. (3) New onset a-fib: Code(s): I48.91 - Unspecified atrial fibrillation Status: Acute Assessment and Plan: Patient was placed on telemetry after admission due to fluid overload status and workup on his heart. Telemetry shows atrial fibrillation with heart rate 75 beats per minute with some PVCs. 10/30/20- EKG was ordered showing Afib HR 72 bpm, with marked LAD, RBBB Echocardiogram shows normal EF 50-55%, diastolic dysfunction, and right sided heart failure. TSH normal. Benzene Operator evaluated the patient and recommended starting him on Eliquis or Xarelto for CHADS2 VASC score of 5. Discussed with the family and insurance would not cover these medications. He was started on Coumadin 10/31/2020 but then developed a GI bleed later on that day. Anticoagulation is on hold at this time, for a few weeks per GI. Will need to refer to Cardiology as to when he can start this. Patient is otherwise asymptomatic at this time, no chest pain, shortness of breath, palpitations Continue monitoring on telemetry. Cardiology's input is greatly appreciated. (4) Heart failure with preserved ejection fraction: Code(s): I50.30 - Unspecified diastolic (congestive) heart failure Status: Acute Assessment and Plan: Patient has had worsening lower extremity swelling, weeping to his chronic wounds. Patient with elevated BNP. Echocardiogram shows normal EF 50-55%, diastolic dysfunction, and symptoms are largely right-sided with evidence of severe pulmonary hypertension. Cardiology decreased IV Lasix to 40 mg Daily. Fluid restriction on at 1500 Daily strict intake and output Continue monitoring fluid status, renal function and electrolytes while diuresis. Cardiology's input is greatly appreciated. Continue monitoring. (5) Pulmonary hypertension: Code(s): I27.20 - Pulmonary hypertension, unspecified Status: Acute Assessment and Plan: Apnea link showed he is at high risk for sleep disorder. The patient states he does snore sometimes, but does not feel fatigued during the day, denies waking up gasping for air or other symptoms. Discussed with the patient that he will need an outpatient sleep study by his primary care provider for further evaluation workup for BILLY. (6) Open wound of both lower extremities: Code(s): S81.801A - Unspecified open wound, right lower leg, initial encounter; S81.802A - Unspecified open wound, left lower leg, initial encounter Status: Acute Assessment and Plan: Patient has chronic open wounds to his Lasix after sustaining significant epstein from 05/16/20. Patient was seen in emergency room after the incident but refused to be transferred to an
[2020-11-02] MEDS: GABAPENTIN 100 MG CAPSULE PO ×2 (13:32→17:22)
[2020-11-02 13:39] LABS: Glucose Point of Care 192 mg/dl (65-105)
[2020-11-02] MEDS: POTASSIUM CHLORIDE 20 MEQ TABLET 40 MEQ PO (17:23)
[2020-11-02 17:50] LABS: Glucose Point of Care 181 mg/dl (65-105)
[2020-11-02] MEDS: HYDROcodone/acetaminophen (*CRX) 7.5-325 MG TABLET 1 TAB PO (22:52)
[2020-11-03] VITALS (14 sets, daily range): BP systolic 84–128; BP diastolic 40–86; PULSE 65–89; RESP 16–20; TEMP 36.4–36.9; O2SAT 93–98
[2020-11-03 00:51] LABS: Glucose Point of Care 156 mg/dl (65-105)
[2020-11-03 05:47] LABS: Basophils Absolute Auto 0.1 K/mm3 (0.0-0.1); Basophils Percent Auto 0.4 % (0.2-1.2); Eosinophils Absolute Auto 0.1 K/mm3 (0-0.3); Eosinophils Percent Auto 0.9 % (0-4.4); Hematocrit 24.5 % (42.0-52.0); Hemoglobin 7.9 g/dL (14.0-18.0); Immature Granulocyte Absolute 0.11 K/mm3 (0.00-0.031); Immature Granulocyte Percent A 0.9 % (0-0.5); Lymphocytes Absolute Auto 1.32 K/mm3 (0.9-3.2); Mean Corpuscular HGB Conc 32.2 g/dl (32-36); Mean Corpuscular Hemoglobin 29.4 pg (26-34); Mean Corpuscular Volume 91.1 fl (80-100); Mean Platelet Volume 10.1 fl (7.4-10.4); Monocytes Absolute Auto 1.3 K/mm3 (0.1-0.6); Monocytes Percent Auto 10.4 % (2.6-8.5); Neutrophils Absolute Auto 9.2 K/mm3 (1.3-6.7); Neutrophils Percent Auto 76.4 % (45.5-73.1); Platelet Count Result 217 k/mm3 (150-375); Red Blood Count 2.69 M/mm3 (4.6-6.20); Red Cell Distribution Width 15.1 % (11.5-14.5)
[2020-11-03 06:02] LABS: Anion Gap 6 mmol/L (8-16); Blood Urea Nitrogen 33 mg/dL (9-20); Calcium 8.5 mg/dL (8.4-10.2); Carbon Dioxide 30 mmol/L (22-30); Chloride 104 mmol/L (98-107); Estimated CRCL calculation 65 ml/min; Estimated Glomerular Filt Rate > 60; Glucose 139 mg/dL (75-110); Magnesium 2.2 mg/dL (1.6-2.3); Potassium 3.7 mmol/L (3.4-5.0); Sodium 140 mmol/L (137-145)
[2020-11-03 08:14] LABS: Glucose Point of Care 150 mg/dl (65-105)
--- NOTE | 2020-11-03 08:35 | PM.IMPN ---
Progress Note: A&P Assessment and Plan (1) Leukocytosis: Code(s): D72.829 - Elevated white blood cell count, unspecified Status: Acute Assessment and Plan: Patient's leukocytosis. He had been on treatment for cellulitis with IV Primaxin and vancomycin. These medications were discontinued since he did not have any signs of cellulitis. Checked chest x-ray yesterday which showed no signs of pneumonia. Pending a urinalysis to rule out any type of UTI causing leukocytosis. He has otherwise been afebrile. Leukocytosis could be from acute GI bleed instead of underlying infection. Continue monitoring vitals and CBC daily. (2) Anemia due to blood loss: Code(s): D50.0 - Iron deficiency anemia secondary to blood loss (chronic) Status: Acute Assessment and Plan: Patient's hemoglobin was normal on arrival and dropped slightly on 10/31/2020. Then that evening, the patient began having melenic stools and had a positive IFOB. Patient's anticoagulation which consisted of Lovenox for atrial fibrillation and 1 dose of 2 mg Coumadin were put on hold. H&H was checked which showed a drop of 2-1/2 point to 9.6. Repeat H&H 5 hours later showed hemoglobin of 8.8 and continued melenic stools. The patient was given 1 unit of PRBCs 11/01/20, with improvement of H&H 9.3/28.9%. H&H this morning stable at 7.9/24.5%. Will give 1 Unit of PRBCs since when he came into the hospital his H&H was normal at 15/46%. Anticoagulations on hold for a few weeks. GI consulted and patient was found to have Duodenal ulcers. Continue PPI initiated IV 40 mg q.12. Will continue monitoring H&H, transfuse as needed. (3) Duodenal ulcer due to nonsteroidal anti-inflammatory drug (NSAID): Code(s): K26.9 - Duodenal ulcer, unspecified as acute or chronic, without hemorrhage or perforation; T39.395A - Adverse effect of other nonsteroidal anti-inflammatory drugs [NSAID], initial encounter Status: Acute Assessment and Plan: PPI BID. No anticoagulation for a few weeks. Further recommendations per GI. (4) New onset a-fib: Code(s): I48.91 - Unspecified atrial fibrillation Status: Acute Assessment and Plan: Patient was placed on telemetry after admission due to fluid overload status and workup on his heart. 10/30/20- EKG was ordered showing Afib HR 72 bpm, with marked LAD, RBBB Telemetry shows atrial fibrillation with heart rate 77 beats per minute with some PVCs. Echocardiogram shows normal EF 50-55%, diastolic dysfunction, and right sided heart failure. TSH normal. Vacuum Evaporation Operator evaluated the patient and recommended starting him on Eliquis or Xarelto for CHADS2 VASC score of 5. Discussed with the family and insurance would not cover these medications. He was started on Coumadin 10/31/2020 but then developed a GI bleed later on that day. Anticoagulation is on hold at this time, for a few weeks per GI. Will need to refer to Cardiology as to when he can start this. Patient is otherwise asymptomatic at this time, no chest pain, shortness of breath, palpitations Continue monitoring on telemetry. Cardiology's input is greatly appreciated. (5) Heart failure with preserved ejection fraction: Code(s): I50.30 - Unspecified diastolic (congestive) heart failure Status: Acute Assessment and Plan: Patient has had worsening lower extremity swelling, weeping to his chronic wounds. Patient with elevated BNP. Echocardiogram shows normal EF 50-55%, diastolic dysfunction, and symptoms are largely right-sided with evidence of severe pulmonary hypertension. Cardiology decreased IV Lasix to 40 mg Daily. He was on a Fluid restriction on at 1500, will discontinue today. Daily strict intake and output Continue monitoring fluid status, renal function and elec
[2020-11-03] MEDS: SODIUM CHLORIDE 0.9% IV 250 ML 30 ML IV CONT (08:37)
[2020-11-03] MEDS: INSULIN ASPART (*BKC) 100 UNITS/ML SUB-Q ×2 (08:39→17:48)
[2020-11-03] MEDS: GABAPENTIN 100 MG CAPSULE PO ×3 (08:40→17:48)
[2020-11-03] MEDS: FUROSEMIDE INJ 40 MG/4 ML VIAL IV PUSH (08:40)
[2020-11-03] MEDS: lisinopriL 10 MG TABLET PO (08:40)
[2020-11-03] MEDS: amLODIPine BESYLATE 5 MG TABLET PO (08:40)
[2020-11-03] MEDS: PANTOPRAZOLE SODIUM IV 40 MG VIAL IV PUSH ×2 (08:41→20:19)
[2020-11-03] MEDS: TAMSULOSIN HCL 0.4 MG CAPSULE PO (08:41)
[2020-11-03] MEDS: SILVERGEL (ELTA) 45 ML 1 APPLIC TOPICAL (08:41)
[2020-11-03] MEDS: HYDROcodone/acetaminophen (*CRX) 7.5-325 MG TABLET 1 TAB PO ×2 (08:41→20:19)
--- NOTE | 2020-11-03 08:50 | PM.PNCARD ---
Progress Note: A&P Assessment and Plan (1) Atrial fibrillation: Code(s): I48.91 - Unspecified atrial fibrillation Status: Acute Assessment and Plan: Atrial fibrillation with underlying RBBB new diagnosis, chronicity unknown. asymptomatic. Heart rate controlled without AV coby blocking agents suggestive underlying conduction system disease. CHADS2 Vasc score 5. Systemic anticoagulation advised. Warfarin held due to drop in H&H and finding of multiple ulcers on EGD today. Per GI recs, anticoagulation to be held for several weeks to allow ulcers to heal. Will discontinue his telemetry monitoring. (2) Heart failure with preserved ejection fraction: Code(s): I50.30 - Unspecified diastolic (congestive) heart failure Status: Acute Assessment and Plan: EF lower limits normal 50-55%. Moderate left atrial enlargement. Continue cautious intravenous diuresis. Monitor electrolytes and renal function closely. Avoid NSAIDs. 2 g daily sodium intake. Monitor volume status closely, avoid intravascular volume depletion. symptoms are largely right-sided with evidence of severe pulmonary hypertension. Continue furosemide IV 1 time daily Potassium chloride 40 mg p.o. x1 (3) NSVT (nonsustained ventricular tachycardia): Code(s): I47.2 - Ventricular tachycardia Status: Acute Assessment and Plan: No VT noted on telemetry overnight. Continue to monitor electrolytes. Continue telemetry. (4) Pulmonary hypertension: Code(s): I27.20 - Pulmonary hypertension, unspecified Status: Acute Assessment and Plan: Severe. Etiology not precisely clear. Heart rate control with atrial fibrillation with lower limits normal LV function. Apnea link showed high risk for sleep disorder. Patient is to pursue sleep study as outpatient. (5) Cellulitis of right lower leg: Code(s): L03.115 - Cellulitis of right lower limb Status: Acute Assessment and Plan: Per primary service. (6) Essential (primary) hypertension: Code(s): I10 - Essential (primary) hypertension Status: Acute Assessment and Plan: Controlled at present. continue medical therapy. (7) Diabetes mellitus: Code(s): E11.9 - Type 2 diabetes mellitus without complications Status: Acute Assessment and Plan: Per primary service. Subjective Date/time seen: 11/03/20 08:50 Interval history: Cardiology follow-up for atrial fibrillation. Date of service 11/01/2020: Patient is feeling weak today. He developed melena last night and continued to have melenic stools throughout the night. GI was consulted and he went to the GI lab today for EGD. Multiple benign ulcers were visualized. Warfarin has been held. Date of service 11/02/2020: No chest pain. No shortness of breath. No further bleeding 11/03/2020 service date: He is in good spirits today. He feels okay and denies any chest pain, shortness of breath, syncope, palpitations. Swelling is better. Review of Systems Review of Systems: All systems reviewed & are unremarkable except as noted in HPI and below Constitutional: Constitutional: Reports as per HPI, Reports no additional constitutional complaints, Denies excessive sweating, Reports fatigue, Reports lethargy and Reports weakness Eyes: Eyes: Reports as per HPI and Reports no additional eye complaints ENT: Reports system reviewed and no additional complaints, except as documented and Reports as per HPI Cardiovascular: Cardiovascular: Reports as per HPI, Reports no additional cardiovascular complaints, Denies chest pain, Denies diaphoresis, Reports pedal edema, Reports leg edema, Denies lightheadedness, Denies palpitations, Reports dyspnea and Reports dyspnea on exertion Respiratory: Respiratory: Reports as per HPI, Reports no additional respiratory complaints, Denies cough, Reports dyspnea, Reports dyspnea on exertion and Denies wheezing Gastrointestinal:
--- NOTE | 2020-11-03 10:21 | WPDGIPROGNO ---
Progress Note: A&P Assessment and Plan (1) Anemia due to blood loss: Code(s): D50.0 - Iron deficiency anemia secondary to blood loss (chronic) Status: Acute Assessment and Plan: Slight decline in hemoglobin noted hemoglobin 7.9 this morning. Transfusion in progress. No evidence of active bleeding this is likely equilibration but will need to be monitored. (2) Duodenal ulcer due to nonsteroidal anti-inflammatory drug (NSAID): Code(s): K26.9 - Duodenal ulcer, unspecified as acute or chronic, without hemorrhage or perforation; T39.395A - Adverse effect of other nonsteroidal anti-inflammatory drugs [NSAID], initial encounter Status: Acute Assessment and Plan: Patient had multiple duodenal ulcers by EGD. There is a history of significant nonsteroidal anti-inflammatory agent use which makes this the most likely etiology. JULIETA test was negative for H pylori. Patient will need to avoid nonsteroidals in the future. Continue PPI therapy perhaps long-term. (3) Heart failure with preserved ejection fraction: Code(s): I50.30 - Unspecified diastolic (congestive) heart failure Status: Acute (4) New onset a-fib: Code(s): I48.91 - Unspecified atrial fibrillation Status: Acute Assessment and Plan: Given patient's duodenal ulcers and recent GI bleeding anticoagulation should be held for at least several weeks. Subjective Date/time seen: 11/03/20 10:21 Patient alert and comfortable at his baseline this morning. No additional blood loss noted. Some decline in hemoglobin identified. Patient currently tolerating diet without difficulty. Review of Systems Review of Systems: ROS unobtainable: Yes unobtainable due to mental status Exam Narrative: Exam Narrative: Physical exam reveals patient be alert. Vital signs are stable. Lungs are clear. Heart without murmur. Abdomen bowel sounds present soft nontender. Objective Data Vital Signs Vital Signs: Vital Signs - 24 hr 11/02/20 12:00 11/02/20 14:00 11/02/20 16:00 Temperature 98.0 F Pulse Rate 73 69 66 Respiratory Rate 18 Blood Pressure 102/59 L Pulse Oximetry 95 11/02/20 20:00 11/02/20 20:35 11/03/20 00:00 Temperature 97.6 F Pulse Rate 73 62 75 Respiratory Rate 18 Blood Pressure 107/50 L Pulse Oximetry 99 11/03/20 01:45 11/03/20 04:00 11/03/20 06:00 Temperature 98.2 F 97.6 F Pulse Rate 68 74 79 Respiratory Rate 16 16 Blood Pressure 100/47 L 103/69 Pulse Oximetry 93 93 11/03/20 08:00 11/03/20 08:40 11/03/20 08:50 Temperature 98.2 F 98.2 F Pulse Rate 72 68 68 Respiratory Rate 16 16 Blood Pressure 100/47 L 100/47 L Pulse Oximetry 93 93 11/03/20 09:10 Temperature 97.9 F Pulse Rate 81 Respiratory Rate 20 Blood Pressure 99/86 L Pulse Oximetry 94 Intake/Output Intake/Output: Intake & Output 10/31/20 11/01/20 11/02/20 11/03/20 23:59 23:59 23:59 23:59 Intake Total 1890 1628 2060 240 Output Total 1500 750 200 Balance 156 291 0926 240 Meds/Results Medications: Active Medications Generic Name Dose Route Start Last Admin Trade Name Freq PRN Reason Stop Dose Admin Hydrocodone Bitart/Acetaminophen 1 tab 10/30/20 00:46 11/03/20 08:41 Hydrocodone/Acetaminophen (*Crx) 7.5-325 Mg Tablet PO 1 tab Q6H PRN Administration Pain Rated 7-10 Amlodipine Besylate 5 mg 10/30/20 09:00 11/03/20 08:40 Amlodipine Besylate 5 Mg Tablet PO 5 mg DAILY MARCIA Administration Dextrose 12.5 gm 10/29/20 23:59 Dextrose 50% 25 Gm/50 Ml Syringe IV PUSH PRN PRN Hypoglycemia Protocol Furosemide 40 mg 11/02/20 09:00 11/03/20 08:40 Furosemide Inj 40 Mg/4 Ml Vial IV PUSH 40 mg DAILY MARCIA Administration Gabapentin 100 mg 11/02/20 13:00 11/03/20 08:40 Gabapentin 100 Mg Capsule PO 100 mg TID MARCIA Administration Glucagon 1 mg 10/29/20 23:59 Glucagon For Inj 1 Mg Vial IM PRN PRN Hypoglycemia Protocol
[2020-11-03 12:40] LABS: Glucose Point of Care 167 mg/dl (65-105)
[2020-11-03 12:56] LABS: Hematocrit 27.3 % (42.0-52.0); Hemoglobin 8.7 g/dL (14.0-18.0)
[2020-11-03] MEDS: POTASSIUM CHLORIDE 10 MEQ TABLET.ER PO (14:02)
[2020-11-03] MEDS: POTASSIUM CHLORIDE 20 MEQ TABLET 40 MEQ PO (14:02)
[2020-11-03 16:41] LABS: Add Urine Microscopic? YES; Appearance Urine Clear (Clear); Bacteria Urine Trace /hpf; Bilirubin Urine Negative (Negative); Blood Urine Negative (Negative); Color Urine Yellow (Yellow); Glucose Urine UA Negative (Negative); Ketones Urine Negative (Negative); Leukocyte Esterase Ur Negative LEU/UL (Negative); Mucus Urine Few /lpf; Nitrate Urine Negative (Negative); Protein Urine 1+ mg/dL (Negative); Specific Grav Ur 1.015 (1.001-1.035); Squamous Epithelial Cell Urine Rare /hpf (Few); Urobilinogen Urine Negative mg/dL (<2.0)
[2020-11-03 17:46] LABS: Glucose Point of Care 247 mg/dl (65-105)
[2020-11-03 20:10] LABS: Glucose Point of Care 221 mg/dl (65-105)
[2020-11-04 05:44] VITALS: BP 115/53; PULSE 70; RESP 18; TEMP 36.4; O2SAT 95
[2020-11-04 05:47] LABS: Basophils Absolute Auto 0.1 K/mm3 (0.0-0.1); Basophils Percent Auto 0.5 % (0.2-1.2); Eosinophils Absolute Auto 0.4 K/mm3 (0-0.3); Eosinophils Percent Auto 2.9 % (0-4.4); Hematocrit 28.7 % (42.0-52.0); Hemoglobin 9.5 g/dL (14.0-18.0); Immature Granulocyte Absolute 0.18 K/mm3 (0.00-0.031); Immature Granulocyte Percent A 1.3 % (0-0.5); Lymphocytes Absolute Auto 1.55 K/mm3 (0.9-3.2); Lymphocytes Percent Auto 11.1 % (18.3-44.2); Mean Corpuscular HGB Conc 33.1 g/dl (32-36); Mean Corpuscular Hemoglobin 30.2 pg (26-34); Mean Corpuscular Volume 91.1 fl (80-100); Monocytes Absolute Auto 1.7 K/mm3 (0.1-0.6); Monocytes Percent Auto 12.2 % (2.6-8.5); Nucleated Red Blood Cells Perc 0.2 % (0.0-0.2); Platelet Count Result 244 k/mm3 (150-375); Red Blood Count 3.15 M/mm3 (4.6-6.20); Red Cell Distribution Width 15.6 % (11.5-14.5); White Blood Count 13.9 K/mm3 (4.5-10.0)
[2020-11-04 05:59] LABS: Anion Gap 9 mmol/L (8-16); Blood Urea Nitrogen 34 mg/dL (9-20); Calcium 8.5 mg/dL (8.4-10.2); Carbon Dioxide 27 mmol/L (22-30); Chloride 102 mmol/L (98-107); Estimated CRCL calculation 54 ml/min; Estimated Glomerular Filt Rate > 60; Glucose 144 mg/dL (75-110); Potassium 4.2 mmol/L (3.4-5.0); Sodium 138 mmol/L (137-145)
[2020-11-04 07:51] LABS: Glucose Point of Care 149 mg/dl (65-105)
[2020-11-04] MEDS: INSULIN ASPART (*BKC) 100 UNITS/ML SUB-Q ×3 (07:52→17:55)
[2020-11-04] MEDS: TAMSULOSIN HCL 0.4 MG CAPSULE PO (09:31)
[2020-11-04] MEDS: GABAPENTIN 100 MG CAPSULE PO ×3 (09:31→16:44)
[2020-11-04] MEDS: amLODIPine BESYLATE 5 MG TABLET PO (09:31)
[2020-11-04] MEDS: SILVERGEL (ELTA) 45 ML 1 APPLIC TOPICAL (09:31)
[2020-11-04] MEDS: PANTOPRAZOLE SODIUM IV 40 MG VIAL IV PUSH ×2 (09:31→20:57)
[2020-11-04] MEDS: lisinopriL 10 MG TABLET PO (09:31)
--- NOTE | 2020-11-04 09:38 | PM.PNCARD ---
Progress Note: A&P Assessment and Plan (1) Atrial fibrillation: Code(s): I48.91 - Unspecified atrial fibrillation Status: Acute Assessment and Plan: Atrial fibrillation with underlying RBBB new diagnosis, chronicity unknown. asymptomatic. Heart rate controlled without AV coby blocking agents suggestive underlying conduction system disease. CHADS2 Vasc score 5. Systemic anticoagulation advised. Warfarin held due to drop in H&H and finding of multiple ulcers on EGD today. Per GI recs, anticoagulation to be held for several weeks to allow ulcers to heal. Will discontinue his telemetry monitoring. (2) Heart failure with preserved ejection fraction: Code(s): I50.30 - Unspecified diastolic (congestive) heart failure Status: Acute Assessment and Plan: EF lower limits normal 50-55%. Moderate left atrial enlargement. Continue cautious intravenous diuresis. Monitor electrolytes and renal function closely. Avoid NSAIDs. 2 g daily sodium intake. Monitor volume status closely, avoid intravascular volume depletion. symptoms are largely right-sided with evidence of severe pulmonary hypertension. Apparently furosemide was held yesterday due to hypotension requiring fluid bolus. BP stable today. Will give furosemide 20mg IV today. (3) NSVT (nonsustained ventricular tachycardia): Code(s): I47.2 - Ventricular tachycardia Status: Acute Assessment and Plan: No longer on telemetry. No reports of palpitations. Asymptomatic. (4) Pulmonary hypertension: Code(s): I27.20 - Pulmonary hypertension, unspecified Status: Acute Assessment and Plan: Severe. Etiology not precisely clear. Heart rate control with atrial fibrillation with lower limits normal LV function. Apnea link showed high risk for sleep disorder. Patient is to pursue sleep study as outpatient. (5) Cellulitis of right lower leg: Code(s): L03.115 - Cellulitis of right lower limb Status: Acute Assessment and Plan: Per primary service. (6) Essential (primary) hypertension: Code(s): I10 - Essential (primary) hypertension Status: Acute Assessment and Plan: Controlled at present. continue medical therapy. (7) Diabetes mellitus: Code(s): E11.9 - Type 2 diabetes mellitus without complications Status: Acute Assessment and Plan: Per primary service. Subjective Date/time seen: 11/04/20 09:38 Interval history: Cardiology follow-up for atrial fibrillation. Date of service 11/01/2020: Patient is feeling weak today. He developed melena last night and continued to have melenic stools throughout the night. GI was consulted and he went to the GI lab today for EGD. Multiple benign ulcers were visualized. Warfarin has been held. Date of service 11/02/2020: No chest pain. No shortness of breath. No further bleeding 11/03/2020 service date: He is in good spirits today. He feels okay and denies any chest pain, shortness of breath, syncope, palpitations. Swelling is better. Date of service 11/04/2020: He is doing well today and does not have any cardiovascular complaints - denies palpitations, shortness of breath. He is having some pain in bilateral lower extremities. Review of Systems Review of Systems: All systems reviewed & are unremarkable except as noted in HPI and below Constitutional: Constitutional: Reports as per HPI, Reports no additional constitutional complaints, Denies excessive sweating, Reports fatigue, Reports lethargy and Reports weakness Eyes: Eyes: Reports as per HPI and Reports no additional eye complaints ENT: Reports system reviewed and no additional complaints, except as documented and Reports as per HPI Cardiovascular: Cardiovascular: Reports as per HPI, Reports no additional cardiovascular complaints, Denies chest pain, Denies diaphoresis, Reports pedal edema, Reports leg edema, Denies lightheadedness, Denies palpitati
[2020-11-04] MEDS: FUROSEMIDE INJ 40 MG/4 ML VIAL 20 MG IV PUSH (10:11)
[2020-11-04] MEDS: HYDROcodone/acetaminophen (*CRX) 7.5-325 MG TABLET 1 TAB PO (10:30)
--- NOTE | 2020-11-04 11:00 | WPDGIPROGNO ---
Progress Note: A&P Assessment and Plan (1) Duodenal ulcer due to nonsteroidal anti-inflammatory drug (NSAID): Code(s): K26.9 - Duodenal ulcer, unspecified as acute or chronic, without hemorrhage or perforation; T39.395A - Adverse effect of other nonsteroidal anti-inflammatory drugs [NSAID], initial encounter Status: Acute Assessment and Plan: Patient with multiple duodenal ulcers. Most likely secondary to NSAIDs. Will continue proton pump inhibitor therapy. Hold anticoagulation for several weeks. Disposition per others. (2) Anemia due to blood loss: Code(s): D50.0 - Iron deficiency anemia secondary to blood loss (chronic) Status: Acute (3) Atrial fibrillation: Code(s): I48.91 - Unspecified atrial fibrillation Status: Acute (4) CHF (congestive heart failure): Code(s): I50.9 - Heart failure, unspecified Status: Acute Subjective Date/time seen: 11/04/20 11:00 Patient remains with poor memory. But comfortable at rest in tolerating diet. No signs of abdominal pain or bleeding evident. Review of Systems Review of Systems: All systems reviewed & are unremarkable except as noted in HPI and below Exam Narrative: Exam Narrative: On physical exam patient is alert comfortable at rest he is anicteric. Vital signs stable. Lungs clear. Heart without murmur. Abdomen soft and nontender. No organomegaly evident. Objective Data Vital Signs Vital Signs: Vital Signs - 24 hr 11/03/20 11:10 11/03/20 11:40 11/03/20 12:55 Temperature 98.2 F 98.4 F Pulse Rate 73 65 Respiratory Rate 16 20 Blood Pressure 91/40 L 84/41 L 98/50 L Pulse Oximetry 98 96 11/03/20 14:00 11/03/20 22:00 11/04/20 05:44 Temperature 98.1 F 97.8 F 97.6 F Pulse Rate 71 89 70 Respiratory Rate 16 18 18 Blood Pressure 101/67 128/62 115/53 L Pulse Oximetry 96 93 95 Intake/Output Intake/Output: Intake & Output 11/01/20 11/02/20 11/03/20 11/04/20 23:59 23:59 23:59 23:59 Intake Total 1628 2060 2040 810 Output Total 750 200 225 Balance 878 1860 1815 810 Meds/Results Medications: Active Medications Generic Name Dose Route Start Last Admin Trade Name Freq PRN Reason Stop Dose Admin Hydrocodone Bitart/Acetaminophen 1 tab 10/30/20 00:46 11/04/20 10:30 Hydrocodone/Acetaminophen (*Crx) 7.5-325 Mg Tablet PO 1 tab Q6H PRN Administration Pain Rated 7-10 Amlodipine Besylate 5 mg 10/30/20 09:00 11/04/20 09:31 Amlodipine Besylate 5 Mg Tablet PO 5 mg DAILY MARCIA Administration Dextrose 12.5 gm 10/29/20 23:59 Dextrose 50% 25 Gm/50 Ml Syringe IV PUSH PRN PRN Hypoglycemia Protocol Gabapentin 100 mg 11/02/20 13:00 11/04/20 09:31 Gabapentin 100 Mg Capsule PO 100 mg TID MARCIA Administration Glucagon 1 mg 10/29/20 23:59 Glucagon For Inj 1 Mg Vial IM PRN PRN Hypoglycemia Protocol Glucose 15 gm 10/29/20 23:59 Glucose Oral Gel 15 Gm Of Glucse In 37.5 Gm Tube PO PRN PRN Hypoglycemia Protocol Dextrose 1,000 mls @ 100 mls/hr 10/29/20 23:59 Dextrose 5% 1,000 Ml IVPB PRN PRN Hypoglycemia Protocol Insulin Aspart 2 - 5 units 10/30/20 08:00 11/04/20 07:52 Insulin Aspart (*Bkc) 100 Units/Ml SUB-Q Not Given TID[facility] Protocol Insulin Aspart 5 units 10/30/20 08:00 11/04/20 07:52 Insulin Aspart (*Bkc) 100 Units/Ml 0.05 units/kg (5 units) 5 units SUB-Q Administration TIDWM [facility] Lisinopril 10 mg 10/30/20 09:00 11/04/20 09:31 Lisinopril 10 Mg Tablet PO 11/29/20 09:01 10 mg DAILY MARCIA Administration Miconazole Nitrate 1 applic 10/30/20 09:00 11/04/20 09:31 Miconazole 2% Antifungal Ointment 56 Gm TOPICAL 1 applic DAILY [facility] Administration Pantoprazole Sodium 40 mg 11/01/20 07:45 11/04/20 09:31 Pantoprazole Sodium Iv 40 Mg Vial IV PUSH 40 mg Q12HR MARCIA Administration Silver Nitrate 1 applic 10/30/20 09:00 11/04/20 09:31 Silver
[2020-11-04 12:08] LABS: Glucose Point of Care 196 mg/dl (65-105)
--- NOTE | 2020-11-04 13:56 | PM.IMPN ---
Progress Note: A&P Assessment and Plan (1) Generalized weakness: Code(s): R53.1 - Weakness Status: Acute Assessment and Plan: Patient with generalized weakness due to hospitalization stay, GI bleed. Discussed in length with the patient and his about him needing to go to a SNF or swing bed after discharge due to his weakness. The patient is understanding and in agreement. While we work on the paperwork with insurance authorization and acceptance he will continue working with PT/OT and we will evaluate every day. (2) Leukocytosis: Code(s): D72.829 - Elevated white blood cell count, unspecified Status: Acute Assessment and Plan: Patient's leukocytosis. He had been on treatment for cellulitis with IV Primaxin and vancomycin. These medications were discontinued since he did not have any signs of cellulitis. Checked chest x-ray yesterday which showed no signs of pneumonia. Urinalysis to rule out any type of UTI causing leukocytosis. He has otherwise been afebrile and feeling well at this time. Leukocytosis could be from acute GI bleed instead of underlying infection. Continue monitoring vitals and CBC daily. (3) Anemia due to blood loss: Code(s): D50.0 - Iron deficiency anemia secondary to blood loss (chronic) Status: Acute Assessment and Plan: Patient's hemoglobin was normal on arrival and dropped slightly on 10/31/2020. Then that evening, the patient began having melenic stools and had a positive IFOB. Patient's anticoagulation which consisted of Lovenox for atrial fibrillation and 1 dose of 2 mg Coumadin were put on hold. H&H was checked which showed a drop of 2-1/2 point to 9.6. Repeat H&H 5 hours later showed hemoglobin of 8.8 and continued melenic stools. The patient was given 1 unit of PRBCs 11/01/20, with improvement of H&H 9.3/28.9%. H&H this morning stable at 7.9/24.5%. Will give 1 Unit of PRBCs 11/03/20 since when he came into the hospital his H&H was normal at 15/46%. Anticoagulations on hold for a few weeks. GI consulted and patient was found to have Duodenal ulcers. Continue PPI initiated IV 40 mg q.12. Will continue monitoring H&H, transfuse as needed. (4) Duodenal ulcer due to nonsteroidal anti-inflammatory drug (NSAID): Code(s): K26.9 - Duodenal ulcer, unspecified as acute or chronic, without hemorrhage or perforation; T39.395A - Adverse effect of other nonsteroidal anti-inflammatory drugs [NSAID], initial encounter Status: Acute Assessment and Plan: PPI BID. No anticoagulation for a few weeks. Further recommendations per GI. (5) New onset a-fib: Code(s): I48.91 - Unspecified atrial fibrillation Status: Acute Assessment and Plan: Patient was placed on telemetry after admission due to fluid overload status and workup on his heart. 10/30/20- EKG was ordered showing Afib HR 72 bpm, with marked LAD, RBBB Telemetry shows atrial fibrillation with heart rate 77 beats per minute with some PVCs. Echocardiogram shows normal EF 50-55%, diastolic dysfunction, and right sided heart failure. TSH normal. Shade Maker evaluated the patient and recommended starting him on Eliquis or Xarelto for CHADS2 VASC score of 5. Discussed with the family and insurance would not cover these medications. He was started on Coumadin 10/31/2020 but then developed a GI bleed later on that day. Anticoagulation is on hold at this time, for a few weeks per GI. Will need to refer to Cardiology as to when he can start this. Patient is otherwise asymptomatic at this time, no chest pain, shortness of breath, palpitations Continue monitoring on telemetry. Cardiology's input is greatly appreciated. [facility]
[2020-11-04 14:00] VITALS: BP 106/46; PULSE 82; RESP 16; TEMP 36.1; O2SAT 92
[2020-11-04 17:35] LABS: Glucose Point of Care 153 mg/dl (65-105)
[2020-11-04 20:00] VITALS: PULSE 64; RESP 16; O2SAT 98
[2020-11-04 20:34] VITALS: BP 116/52; PULSE 64; RESP 16; TEMP 36.6; O2SAT 98
[2020-11-04 21:23] LABS: Glucose Point of Care 249 mg/dl (65-105)
[2020-11-05] MEDS: HYDROcodone/acetaminophen (*CRX) 7.5-325 MG TABLET 1 TAB PO (00:35)
[2020-11-05 05:44] LABS: Hematocrit 28.4 % (42.0-52.0); Hemoglobin 9.3 g/dL (14.0-18.0); Mean Corpuscular HGB Conc 32.7 g/dl (32-36); Mean Corpuscular Hemoglobin 29.6 pg (26-34); Mean Corpuscular Volume 90.4 fl (80-100); Mean Platelet Volume 9.9 fl (7.4-10.4); Platelet Count Result 245 k/mm3 (150-375); Red Blood Count 3.14 M/mm3 (4.6-6.20); Red Cell Distribution Width 15.8 % (11.5-14.5); White Blood Count 15.4 K/mm3 (4.5-10.0)
[2020-11-05 06:00] VITALS: BP 119/57; PULSE 71; RESP 18; TEMP 36.9; O2SAT 94
[2020-11-05 06:09] LABS: Anion Gap 8 mmol/L (8-16); Blood Urea Nitrogen 31 mg/dL (9-20); Calcium 8.3 mg/dL (8.4-10.2); Carbon Dioxide 27 mmol/L (22-30); Chloride 99 mmol/L (98-107); Estimated CRCL calculation 59 ml/min; Estimated Glomerular Filt Rate > 60; Glucose 162 mg/dL (75-110); Sodium 134 mmol/L (137-145)
[2020-11-05] MEDS: FUROSEMIDE 40 MG TABLET PO (08:50)
[2020-11-05] MEDS: TAMSULOSIN HCL 0.4 MG CAPSULE PO (08:51)
[2020-11-05] MEDS: lisinopriL 10 MG TABLET PO (08:51)
[2020-11-05] MEDS: amLODIPine BESYLATE 5 MG TABLET PO (08:51)
[2020-11-05] MEDS: GABAPENTIN 100 MG CAPSULE PO ×3 (08:51→16:50)
[2020-11-05] MEDS: PANTOPRAZOLE SODIUM IV 40 MG VIAL IV PUSH (09:00)
[2020-11-05] MEDS: SILVERGEL (ELTA) 45 ML 1 APPLIC TOPICAL (09:01)
[2020-11-05] MEDS: INSULIN ASPART (*BKC) 100 UNITS/ML SUB-Q ×5 (09:19→16:54)
[2020-11-05 09:37] LABS: Glucose Point of Care 156 mg/dl (65-105)
--- NOTE | 2020-11-05 11:12 | PM.PNCARD ---
Progress Note: A&P Assessment and Plan (1) Atrial fibrillation: Code(s): I48.91 - Unspecified atrial fibrillation <RADHA Chin - Last Filed: 11/05/20 11:17> Status: Acute <RADHA Chin - Last Filed: 11/05/20 11:17> Assessment and Plan: Atrial fibrillation with underlying RBBB new diagnosis, chronicity unknown. asymptomatic. Heart rate controlled without AV coby blocking agents suggestive underlying conduction system disease. CHADS2 Vasc score 5. Systemic anticoagulation advised. Warfarin held due to drop in H&H and finding of multiple ulcers on EGD last week. Per GI recs, anticoagulation to be held for several weeks to allow ulcers to heal. Will discontinue his telemetry monitoring. <RADHA Chin - Last Filed: 11/05/20 11:17> (2) Heart failure with preserved ejection fraction: Code(s): I50.30 - Unspecified diastolic (congestive) heart failure <RADHA Chin - Last Filed: 11/05/20 11:17> Status: Acute <RADHA Chin - Last Filed: 11/05/20 11:17> Assessment and Plan: EF lower limits normal 50-55%. Moderate left atrial enlargement. Continue cautious intravenous diuresis. Monitor electrolytes and renal function closely. Avoid NSAIDs. 2 g daily sodium intake. Monitor volume status closely, avoid intravascular volume depletion. symptoms are largely right-sided with evidence of severe pulmonary hypertension. Apparently furosemide was held yesterday due to hypotension requiring fluid bolus. BP remains stable. He is on oral furosemide. <RADHA Chin - Last Filed: 11/05/20 11:17> (3) NSVT (nonsustained ventricular tachycardia): Code(s): I47.2 - Ventricular tachycardia <RADHA Chin - Last Filed: 11/05/20 11:17> Status: Acute <RADHA Chin - Last Filed: 11/05/20 11:17> Assessment and Plan: No longer on telemetry. No reports of palpitations. Asymptomatic. <RADHA Chin - Last Filed: 11/05/20 11:17> (4) Pulmonary hypertension: Code(s): I27.20 - Pulmonary hypertension, unspecified <TOM ChinC - Last Filed: 11/05/20 11:17> Status: Acute <Yana Hernandez APN-C - Last Filed: 11/05/20 11:17> Assessment and Plan: Severe. Etiology not precisely clear. Heart rate control with atrial fibrillation with lower limits normal LV function. Apnea link showed high risk for sleep disorder. Patient is to pursue sleep study as outpatient. <TOM ChinC - Last Filed: 11/05/20 11:17> (5) Cellulitis of right lower leg: Code(s): L03.115 - Cellulitis of right lower limb <TOM ChinC - Last Filed: 11/05/20 11:17> Status: Acute <TOM ChinC - Last Filed: 11/05/20 11:17> Assessment and Plan: Per primary service. <TOM ChinC - Last Filed: 11/05/20 11:17> (6) Essential (primary) hypertension: Code(s): I10 - Essential (primary) hypertension <TOM ChinC - Last Filed: 11/05/20 11:17> Status: Acute <TOM ChinC - Last Filed: 11/05/20 11:17> Assessment and Plan: Controlled at present. continue medical therapy. <TOM ChinC - Last Filed: 11/05/20 11:17> (7) Diabetes mellitus: Code(s): E11.9 - Type 2 diabetes mellitus without complications <TOM ChinC - Last Filed: 11/05/20 11:17> Status: Acute <Yana Hernandez APN-C - Last Filed: 11/05/20 11:17> Assessment and Plan: Per primary service. <RADHA Chin - Last Filed: 11/05/20 11:17> Additional Plan I personally saw and evaluated the patient. I reviewed Yana Hernandez's note and agree with findings and plan of care as documented in the note. <Leeroy Collins MD - Last Filed: 11/05/20 12:19> Subjective Date/time seen: 11/05/20 11:12 <RADHA Chin - Last
[2020-11-05 12:35] LABS: Glucose Point of Care 267 mg/dl (65-105)
[2020-11-05 14:00] VITALS: BP 100/50; PULSE 67; RESP 18; TEMP 36.2; O2SAT 95
--- NOTE | 2020-11-05 15:17 | PM.DS ---
DS: Admitting Diagnosis Admitting Diagnosis Admitting Diagnosis: Leg wounds and swelling DS: Discharge Diagnosis Discharge Diagnosis (1) Generalized weakness: Code(s): R53.1 - Weakness Status: Acute Assessment and Plan: Date of Admission 10/29/20 Date of Discharge 11/05/20 Mr. Sandra is an 85yo M with diabetes, hypertension, CHF who presented to the ED for evaluation of AUTUMN leg pain for months with weeping wounds and all-over swelling. He was treated here for acute on chronic CHF exacerbation. He was initially started on IV antibiotics for possible cellulitis, which were discontinued upon further evaluation as he was not felt to have actual infection but rather AUTUMN redness and warmth from significant swelling. He was seen by wound RN and treated with local wound care. He was also noted to have new atrial fibrillation and was evaluated by cardiology as outlined below. He was started on warfarin during this stay but then was noted to have melanotic stools. He was evaluated by GI as noted below and found to have GI bleed. It is recommended by GI to hold of on anticoagulation for several weeks. He continues to be very weak and has worked with PT/OT. He is felt to be a good candidate to continue working with therapy at SNF. He is hemodynamically stable for discharge to SNF today. Patient with generalized weakness due to hospitalization stay, GI bleed. Dc to SNF. (2) Leukocytosis: Code(s): D72.829 - Elevated white blood cell count, unspecified Status: Acute Assessment and Plan: Patient's leukocytosis. He had been on treatment for cellulitis with IV Primaxin and vancomycin. These medications were discontinued since he did not have any signs of cellulitis. CXR showed no signs of pneumonia. Urinalysis ruled out any type of UTI causing leukocytosis. Blood cultures negative. He has otherwise been afebrile and feeling well at this time. Leukocytosis could be from acute GI bleed instead of underlying infection. (3) Anemia due to blood loss: Code(s): D50.0 - Iron deficiency anemia secondary to blood loss (chronic) Status: Acute Assessment and Plan: Patient's hemoglobin was normal on arrival and dropped slightly on 10/31/2020. Then that evening, the patient began having melenic stools and had a positive IFOB. Patient's anticoagulation which consisted of Lovenox for atrial fibrillation and 1 dose of 2 mg Coumadin were put on hold. H&H was checked which showed a drop of 2-1/2 point to 9.6. Repeat H&H 5 hours later showed hemoglobin of 8.8 and continued melenic stools. The patient was given 1 unit of PRBCs 11/01/20, with improvement of H&H 9.3/28.9%. Got another 1 Unit of PRBCs 11/03/20. Anticoagulations on hold for a few weeks. GI consulted and patient was found to have Duodenal ulcers. Continue PPI BID. (4) Duodenal ulcer due to nonsteroidal anti-inflammatory drug (NSAID): Code(s): K26.9 - Duodenal ulcer, unspecified as acute or chronic, without hemorrhage or perforation; T39.395A - Adverse effect of other nonsteroidal anti-inflammatory drugs [NSAID], initial encounter Status: Acute Assessment and Plan: PPI BID. No anticoagulation for a few weeks. Avoid NSAIDs. (5) New onset a-fib: Code(s): I48.91 - Unspecified atrial fibrillation Status: Acute Assessment and Plan: 10/30/20- EKG was ordered showing Afib HR 72 bpm, with marked LAD, RBBB Telemetry shows atrial fibrillation with heart rate 77 beats per minute with some PVCs. Echocardiogram shows normal EF 50-55%, diastolic dysfunction, and right sided heart failure. TSH normal. Electrical Automation Engineer evaluated the patient and recommended starting him on Eliquis or Xarelto for CHADS2 VASC scor
[2020-11-05 16:55] LABS: Glucose Point of Care 246 mg/dl (65-105)
[2020-11-05 17:22] LABS: EDCOVIDSCREEN Negative (Negative)
[2020-11-05 20:00] VITALS: PULSE 63; RESP 20; O2SAT 94
[2020-11-05 20:36] VITALS: BP 111/53; PULSE 63; RESP 20; TEMP 37.1; O2SAT 94
== END 2020-11-05 21:25 | DRG 291 ==
LOC: ANHED 17:36 → ANH2MED 19:40
PROVIDERS: Internal Medicine Cardiovascular Disease; Internal Medicine Gastroenterology; Nurse Practitioner; Physician Assistant; Admitting Provider Internal Medicine; Emergency Provider Emergency Medicine; PCP Family Medicine; Visit Provider Physician Assistant
PROC: 0DJ08ZZ Inspection of Upper Intestinal Tract, Via Natural or Artificial Opening Endoscopic (ICD-10-PCS; CPT 43235; principal; 2020-11-01 12:30)
DX: I11.0 Hypertensive heart disease with heart failure (principal); K26.4 Chronic or unspecified duodenal ulcer with hemorrhage; D62 Acute posthemorrhagic anemia; I47.2 Ventricular tachycardia; I48.91 Unspecified atrial fibrillation; I50.33 Acute on chronic diastolic (congestive) heart failure; D72.829 Elevated white blood cell count, unspecified; Z20.822 Contact with and (suspected) exposure to COVID-19; E87.6 Hypokalemia; E11.9 Type 2 diabetes mellitus without complications; T39.395A Adverse effect of other nonsteroidal anti-inflammatory drugs [NSAID], initial encounter; N40.0 Benign prostatic hyperplasia without lower urinary tract symptoms; M54.5 Low back pain; G89.29 Other chronic pain; E66.9 Obesity, unspecified; Z68.30 Body mass index [BMI] 30.0-30.9, adult; S81.801A Unspecified open wound, right lower leg, initial encounter; S81.802A Unspecified open wound, left lower leg, initial encounter; X08.8XXS Exposure to other specified smoke, fire and flames, sequela
CPT/HCPCS: 36415; 36430; 71045; 71046; 73590; 80048; 80053; 80076; 80202; 81001; 82274; 82948; 83036; 83605; 83735; 83880; 84132; 84443; 84484; 85014; 85018; 85025; 85027; 85610; 85730; 86140; 86850; 86900; 86901; 86920; 86923; 87040; 87081; 87426; 93005; 93306; 94762; 97110; 97161; 97165; 97530; 97535; 99285; A9270; C9113; C9803; J0743; J1650; J1815; J1940; J2543; J2704; J3370; J3475; J3480; J7050; J7120; P9016

== ENCOUNTER 2020-11-29 11:46 | Emergency (ER) | payer MEDICARE, SELFPAY ==
[2020-11-29] VITALS (20 sets, daily range): BP systolic 103–113; BP diastolic 62–71; PULSE 62–83; RESP 12–22; TEMP 36.4; O2SAT 95–100
--- NOTE | ~2020-11-29 | XR_ITS ---
EXAMINATION: XR chest 2V DATE: 11/29/2020 12:26 INDICATION: Hypertension. Pitting edema. TECHNIQUE: Frontal and lateral views of the chest were obtained. COMPARISON: Chest 2 views 11/02/2020 FINDINGS: There are small pleural effusions. There are interstitial opacities in the inferior lungs, consistent with mild pulmonary edema. No pneumothorax. Cardiomegaly is noted. There are old healed le ft rib fractures. IMPRESSION: 1. Mild pulmonary edema. 2. Small pleural effusions. 3. Cardiomegaly. Reviewed, dictated and finalized at location A.
--- NOTE | 2020-11-29 12:10 | ECG_ITS ---
Measurements Intervals [place] Rate: 63 P: AL: 0 QRS: 268 QRSD: 153 T: -5 QT: 453 QTc: 464 Interpretive Statements ATRIAL FIBRILLATION RIGHT AXIS DEVIATION RIGHT BUNDLE BRANCH BLOCK BASELINE ARTIFACT- I, II, III, AVR, AVF, V1, V3-V6 ABNORMAL ECG Electronically Signed On 11-29-2020 12:36:21 CDT by Kan Sampson D.O.
[2020-11-29 12:58] LABS: Basophils Absolute Auto 0.1 K/mm3 (0.0-0.1); Basophils Percent Auto 0.4 % (0.2-1.2); Eosinophils Absolute Auto 0.1 K/mm3 (0-0.3); Eosinophils Percent Auto 0.8 % (0-4.4); Hematocrit 35.3 % (42.0-52.0); Hemoglobin 11.2 g/dL (14.0-18.0); Immature Granulocyte Absolute 0.23 K/mm3 (0.00-0.031); Immature Granulocyte Percent A 1.8 % (0-0.5); Lymphocytes Percent Auto 6.2 % (18.3-44.2); Mean Corpuscular HGB Conc 31.7 g/dl (32-36); Mean Corpuscular Hemoglobin 29.1 pg (26-34); Mean Corpuscular Volume 91.7 fl (80-100); Mean Platelet Volume 9.7 fl (7.4-10.4); Monocytes Absolute Auto 0.9 K/mm3 (0.1-0.6); Monocytes Percent Auto 6.7 % (2.6-8.5); Neutrophils Absolute Auto 10.8 K/mm3 (1.3-6.7); Neutrophils Percent Auto 84.1 % (45.5-73.1); Platelet Count Result 274 k/mm3 (150-375); Red Blood Count 3.85 M/mm3 (4.6-6.20); Red Cell Distribution Width 15.6 % (11.5-14.5); White Blood Count 12.9 K/mm3 (4.5-10.0)
[2020-11-29 13:02] LABS: Add Urine Microscopic? YES; Appearance Urine Clear (Clear); Bilirubin Urine Negative (Negative); Blood Urine Negative (Negative); Color Urine Amber (Yellow); Glucose Urine UA Negative (Negative); Ketones Urine Negative (Negative); Leukocyte Esterase Ur Negative LEU/UL (Negative); Mucus Urine Rare /lpf; Nitrate Urine Negative (Negative); Protein Urine 1+ mg/dL (Negative); RBC Urine 0-2 /hpf (0-2); Squamous Epithelial Cell Urine Rare /hpf (Few); WBC Urine 0-3 /hpf
[2020-11-29 13:08] LABS: INR 1.3; Prothrombin Time 15.7 Seconds (11.1-14.7)
[2020-11-29 13:09] LABS: Partial Thromboplastin Time 29.7 SECONDS (22.3-36.8)
[2020-11-29 13:21] LABS: Alanine Aminotransferase 21 U/L (4-50); Albumin Level 3.5 g/dL (3.5-5.1); Alkaline Phosphatase 278 U/L (38-126); Anion Gap 7 mmol/L (8-16); Aspartate Amino Transferase 39 U/L (17-59); Bilirubin,Total 1.2 mg/dL (0.2-1.3); Blood Urea Nitrogen 13 mg/dL (9-20); Calcium 8.6 mg/dL (8.4-10.2); Carbon Dioxide 28 mmol/L (22-30); Chloride 97 mmol/L (98-107); Estimated CRCL calculation 84 ml/min; Estimated Glomerular Filt Rate > 60; Glucose 97 mg/dL (75-110); Potassium 4.5 mmol/L (3.4-5.0); Sodium 132 mmol/L (137-145)
[2020-11-29 13:27] LABS: NT Pro B Type Natriuretic Pept 8400 pg/mL (5-100); Troponin I 0.026 ng/mL (0.000-0.034)
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
[2020-11-29] MEDS: FUROSEMIDE INJ 40 MG/4 ML VIAL IV PUSH (14:11)
== END 2020-11-29 16:05 ==
PROVIDERS: Emergency Medicine; Emergency Provider Emergency Medicine; PCP Family Medicine
DX: I50.9 Heart failure, unspecified (principal); F32.9 Major depressive disorder, single episode, unspecified; E11.9 Type 2 diabetes mellitus without complications; I10 Essential (primary) hypertension; Z79.84 Long term (current) use of oral hypoglycemic drugs; I51.7 Cardiomegaly; I48.91 Unspecified atrial fibrillation; I45.10 Unspecified right bundle-branch block
CPT/HCPCS: 36415; 71046; 80053; 81001; 83880; 84484; 85025; 85610; 85730; 93005; 96374; 99284; J1940

== ENCOUNTER 2020-12-31 17:45 | Emergency (ER) | payer MEDICARE, SELFPAY ==
--- NOTE | ~2020-12-31 | XR_ITS ---
EXAMINATION: XR chest 2V DATE: 12/31/2020 19:16 INDICATION: Fall TECHNIQUE: frontal and lateral views of the chest were obtained. COMPARISON: Chest radiograph dated 11/29/2020 FINDINGS: The lungs are clear with no focal airspace opacities, pulmonary edema, pleural effusion or pneumothor ax. Cardiomegaly. Few healed bilateral rib fractures. Moderate degenerative skeletal changes in the s pine and at the bilateral shoulders. IMPRESSION: 1. Cardiomegaly. No acute cardiopulmonary disease. Reviewed, dictated and finalized at location A.
--- NOTE | ~2020-12-31 | XR_ITS ---
EXAMINATION: XR elbow LT min 3V DATE: 12/31/2020 19:17 INDICATION: Fall with open wounds cuts at the left elbow TECHNIQUE: Anteroposterior, oblique and lateral views of the left elbow were obtained. COMPARISON: None. FINDINGS: Alignment is normal. No fracture or joint effusion. Mild osteoarthritis at the left elbow. Small olec ranon spur. Soft tissues are unremarkable. No radiopaque foreign bodies. IMPRESSION: 1. Mild degenerative changes at the left elbow. No joint effusion or acute osseous abnormality. Reviewed, dictated and finalized at location A. IMPRESSION: 1. Mild degenerative changes at the left elbow. No joint effusion or acute osse ous abnormality.
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
--- NOTE | ~2020-12-31 | XR_ITS ---
EXAMINATION: XR wrist RT min 3V DATE: 12/31/2020 19:15 INDICATION: Open cuts and wounds at the right wrist post fall TECHNIQUE: Posteroanterior, oblique, and lateral views of the right wrist were obtained. COMPARISON: none FINDINGS: Alignment is normal. No acute fracture. 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 There is relative widen ing of the scapholunate interval suggesting scapholunate ligament tear/insufficiency. This may be chr onic as there is severe osteoarthritis at the lunocapitate articulation consistent with scapholunate advanced collapse (SLAC) wrist. There is additional moderate to severe osteoarthritis at the triscaph e, first carpal metacarpal and second and third metacarpophalangeal joints. Mild osteoarthritis at th e distal radioulnar, wrist and remaining metacarpophalangeal and visualized interphalangeal joints. A therosclerotic calcific lesion along the ulnar artery. Soft tissues are unremarkable with no radiopaq ue foreign bodies. IMPRESSION: 1. No acute fracture. 2. 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 3. 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 Reviewed, dictated and finalized at location A. IMPRESSION: 1. No acute fracture. 2. 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 3. Constellation of findings suggestive of chronic scapholunate ligament insuff iciency and scapholunate advanced collapse (SLAC) wrist.
[2020-12-31 18:04] VITALS: BP 115/65; PULSE 85; RESP 23; TEMP 36.7; O2SAT 97
[2020-12-31 18:46] VITALS: BP 120/60; PULSE 87; RESP 18; O2SAT 97
--- NOTE | 2020-12-31 18:56 | PC.NURSE ---
Pt to CT scan and XRAY via stretcher at this time.
[2020-12-31 19:00] LABS: Glucose Point of Care 210 mg/dl (65-105)
--- NOTE | 2020-12-31 19:06 | ED.FALL ---
HPI - Fall General Chief Complaint: Fall Stated Complaint: fall, laceration, Time Seen by Provider: 12/31/20 18:37 History of Present Illness HPI Narrative: history obtained by family and nurse at his correction facility who is his primary caregiver Patient had unwitnessed fall today. Patient has baseline confusion. Today the patient in a wheelchair while he was eating the daughter noticed that he had wheeled himself back to the room and then they heard a crash and they went to the bedside and saw the patient on the ground. Patient is not supposed to transfer himself from the bed or the wheelchair. Nursing facility did not note any loss of consciousness did not appreciate any change in his mental status after he had fell. They called EMS right away as a noted laceration. They report he is been participating in his usual routine report he does have some difficulty with p.o. intake but they have not noted any recent changes. Related Data Home Medications Medication Instructions Recorded Confirmed BasaDrox 1 applic TOPICAL Q3D 10/29/20 10/29/20 amlodipine [Norvasc] 5 mg PO DAILY 10/29/20 10/29/20 benazepril [Lotensin] 10 mg PO DAILY 10/29/20 10/29/20 glimepiride [Amaryl] 1 mg PO QAM 10/29/20 10/29/20 metformin [Glucophage] 1,000 mg PO BID 10/29/20 10/29/20 tamsulosin [Flomax] 0.4 mg PO DAILY 10/29/20 10/29/20 Allergies Allergy/AdvReac Type Severity Reaction Status Date / Time dapagliflozin Allergy Unknown increased Verified 12/31/20 18:15 blood sugar Review of Systems Review of Systems: ROS unobtainable: Yes unobtainable due to mental status PMFSH Past Medical History Medical History Diabetes mellitus HTN (hypertension) Family History Family History Other Unknown family medical history Social History Social History Social History: Smoking status: Never smoker Second hand tobacco smoke exposure: No Alcohol intake: current Drinks per week: 2 Substance use: never Substance use type: does not use Gender identity (if verbalized by the patient): Male Spiritual care concerns: No Exam Narrative: GENERAL: Well-appearing, well-nourished, and in no acute distress. HEAD: Normocephalic, Barsness 3 cm laceration noted above the right eyebrow no active bleeding EYES: PERRLA and EOMI. ENT: Nares clear, no rhinorrhea or epistaxis. Mucous membranes moist. NECK: Supple. No masses. No JVD CHEST: Clear to auscultation. No respiratory distress. No wheezes rales or rhonchi HEART: Regular rate and rhythm. No murmur heard. Normal peripheral pulses. ABDOMEN: Soft, nontender, nondistended, normal active bowel sounds. EXTREMITIES: Normal range of motion. No edema. There is mild tenderness with palpation of the right elbow and right wrist no snuffbox tenderness no obvious deformity SKIN: Warm, dry, no rash. Skin tears on the right elbow multiple small abrasions on the right hand and wrist NEURO: 5 out of 5 strength in all extremities with sensation intact to light touch. Cranial nerves II through XII are intact alert and oriented x3. PSYCH: Normal mood and affect. Course Reevaluation(s) Reevaluation #1: Lac repaired, pt resting comfortably, family comfortable with the out patient plan, labs/img reviewed with family Date: 12/31/20 Time: 21:09 Vital Signs Vital signs: Vital Signs Temperature 36.7 C 12/31/20 18:04 Pulse Rate 85 12/31/20 18:04 Respiratory Rate 23 H 12/31/20 18:04 Blood Pressure 115/65 12/31/20 18:04 Pulse Oximetry 97 12/31/20 18:04 Temperature 36.7 C 12/31/20 18:04 Pulse Rate 84 12/31/20 19:42 Respiratory Rate 24 H 12/31/20 19:42 Blood Pressure 130/67 12/31/20 19:42 Pulse Oximetry 99 12/31/20 19:42 Procedures Laceration Laceration 1: Date: 12/31/20 Time:
[2020-12-31 19:42] VITALS: BP 130/67; PULSE 84; RESP 24; O2SAT 99
[2020-12-31 19:43] LABS: Basophils Absolute Auto 0.1 K/mm3 (0.0-0.1); Basophils Percent Auto 0.4 % (0.2-1.2); Eosinophils Absolute Auto 0.5 K/mm3 (0-0.3); Eosinophils Percent Auto 3.1 % (0-4.4); Hemoglobin 14.7 g/dL (14.0-18.0); Immature Granulocyte Absolute 0.12 K/mm3 (0.00-0.031); Immature Granulocyte Percent A 0.8 % (0-0.5); Lymphocytes Absolute Auto 0.83 K/mm3 (0.9-3.2); Lymphocytes Percent Auto 5.4 % (18.3-44.2); Mean Corpuscular Hemoglobin 28.8 pg (26-34); Mean Corpuscular Volume 90.2 fl (80-100); Mean Platelet Volume 8.9 fl (7.4-10.4); Monocytes Absolute Auto 0.9 K/mm3 (0.1-0.6); Monocytes Percent Auto 5.6 % (2.6-8.5); Neutrophils Absolute Auto 13.1 K/mm3 (1.3-6.7); Neutrophils Percent Auto 84.7 % (45.5-73.1); Platelet Count Result 338 k/mm3 (150-375); Red Cell Distribution Width 15.9 % (11.5-14.5); White Blood Count 15.5 K/mm3 (4.5-10.0)
[2020-12-31] MEDS: SODIUM CHLORIDE 0.9% IV 500 ML 999 ML IV CONT (19:45)
[2020-12-31 19:53] LABS: Alanine Aminotransferase 21 U/L (4-50); Albumin Level 3.9 g/dL (3.5-5.1); Alkaline Phosphatase 198 U/L (38-126); Anion Gap 10 mmol/L (8-16); Aspartate Amino Transferase 60 U/L (17-59); Bilirubin,Total 1.2 mg/dL (0.2-1.3); Blood Urea Nitrogen 15 mg/dL (9-20); Calcium 9.3 mg/dL (8.4-10.2); Carbon Dioxide 32 mmol/L (22-30); Chloride 93 mmol/L (98-107); Estimated CRCL calculation 65 ml/min; Estimated Glomerular Filt Rate > 60; Glucose 196 mg/dL (65-110); Potassium 3.8 mmol/L (3.4-5.0); Sodium 135 mmol/L (137-145)
[2020-12-31] MEDS: ACETAMINOPHEN 325 MG TABLET 650 MG PO (20:52)
--- NOTE | 2020-12-31 21:54 | PC.NURSE ---
made contact with [facility] to transfer pt is andrae herrera. eta [phone]
--- NOTE | 2020-12-31 22:06 | PC.NURSE ---
ems eta [phone]
--- NOTE | 2021-01-01 01:02 | PC.NURSE ---
made contact with [facility] new eta [id number]
--- NOTE | 2021-01-01 01:58 | PC.NURSE ---
pt requesting tylenol for pain which he gets Q4-6 hours prn at the care facility. EDP made aware, states she will need to look at the chart.
--- NOTE | 2021-01-01 01:59 | PC.NURSE ---
no new orders given at this time.
--- NOTE | 2021-01-01 02:20 | PC.NURSE ---
frank has arrived and is aware that pt is going to [facility] [place]
[2021-01-01] MEDS: ACETAMINOPHEN 325 MG TABLET 650 MG PO (02:39)
[2021-01-01 02:41] VITALS: BP 133/70; PULSE 78; RESP 18; O2SAT 97
== END 2021-01-01 02:42 ==
PROVIDERS: Emergency Provider Emergency Medicine; PCP Family Medicine
DX: S01.81XA Laceration without foreign body of other part of head, initial encounter (principal); D72.829 Elevated white blood cell count, unspecified; E11.9 Type 2 diabetes mellitus without complications; I10 Essential (primary) hypertension; W19.XXXA Unspecified fall, initial encounter; W05.0XXA Fall from non-moving wheelchair, initial encounter; Y92.129 Unspecified place in nursing home as the place of occurrence of the external cause
CPT/HCPCS: 12002; 36415; 70450; 71046; 72125; 73080; 73100; 73110; 80053; 82948; 85025; 96360; 99284; A9270; J7040

== ENCOUNTER 2021-01-06 19:03 | Inpatient (IN) | payer MEDICARE, SELFPAY ==
--- NOTE | ~2021-01-06 | XR_ITS ---
XR chest 1V portable DATE: 01/06/2021 19:42 INDICATION: Transient alteration of awareness. Hypertension. TECHNIQUE: Portable supine AP views on 01/06/2021 at 1938 hours COMPARISON: 12/31/2020 AP and lateral chest FINDINGS: There are scattered patchy infiltrates of both lungs, including right mid and upper lung an d left lower lung in particular, with some left upper lobe involvement as well. Cardiomegaly. There is pulmonary vascular prominence with n pulmonary vascular redistribution. There is prominence of the minor fissure which may indicate subpleural edema. No pleural effusion is evident. Diffuse osteopenia. Degenerative changes of the thoracic and lumbar spine. IMPRESSION: Cardiomegaly, pulmonary vascular congestion/redistribution, subpleural edema, bilateral i nfiltrates, suggesting congestive heart failure pulmonary edema. Multifocal pneumonia is not excluded. The congestive changes and infiltrates and prominence of the minor fissure are new findings since 12/22 Reviewed, dictated and finalized at location [facility]. IMPRESSION: Cardiomegaly, pulmonary vascular congestion/redistribution, subpleu ral edema, bilateral infiltrates, suggesting congestive heart failure pulmonary edema. Multifocal pneumonia is not excluded. The congestive changes and infiltrates and prominence of the minor fissure are new findings since 12/31/2020
--- NOTE | ~2021-01-06 | XR_ITS ---
EXAMINATION: XR chest 2V DATE: 01/09/2021 08:29 INDICATION: Pulmonary congestion TECHNIQUE: frontal and lateral views of the chest were obtained. COMPARISON: Chest radiograph dated 01/06/2021 FINDINGS: Unchanged patchy airspace opacities in the posterior aspect of the right mid and bilateral lower lung zones. No pneumothorax or definitive pleural effusion. Mild cardiomegaly. Moderate degenerative skel etal changes in the cervical spine and bilateral acromioclavicular joints. IMPRESSION: 1. Unchanged opacities in the right mid and bilateral lower lung zones which could represent atelecta sis, pneumonia or pulmonary edema. 2. Cardiomegaly. Reviewed, dictated and finalized at location [facility]. IMPRESSION: 1. Unchanged opacities in the right mid and bilateral lower lung zones which co uld represent atelectasis, pneumonia or pulmonary edema. 2. Cardiomegaly.
--- NOTE | ~2021-01-06 | CT_ITS ---
EXAMINATION: CT brain wo con DATE: 01/06/2021 19:52 INDICATION: Confusion, altered mental state. Hypotension (90/60). Hypoglycemia. TECHNIQUE: Computed tomography (CT) of the head was performed without intravenous contrast. The mA wa s adjusted according to patient size. Iterative reconstruction technique was employed. Exam dose: 60 5.33 mGy-cm total exam DLP. COMPARISON: 12/31/2020 CT brain FINDINGS: There is very prominent vertebral artery, basilar artery and bilateral carotid siphon and s upraclinoid internal carotid artery calcification. Small chronic lacunar infarcts of the right caudate nucleus Prominent nonspecific patchy diminished attenuation of the subcortical and particularly periventricul ar white matter, likely due to chronic small vessel ischemic changes. No intracranial mass lesion or hemorrhage or cerebrovascular accident is evident. No midline shift or mass effect effect. Central and cortical cerebral prominent atrophy. Moderate cerebellar atrophy. No subdural or epidural hematoma is detected. No fracture or bone destruction of the cranial vault. The mastoid air cells and paranasal sinuses included in the examination are unremarkable. IMPRESSION: Cerebral atherosclerosis, chronic small vessel ischemic changes of cerebral white matter and chronic lacunar infarcts right caudate nucleus No acute intracranial finding or significant change since 12/31/2020 Reviewed, dictated and finalized at [facility]. Reviewed, dictated and finalized at location A.
[2021-01-06 19:01] VITALS: BP 87/50; PULSE 64; RESP 17; TEMP 36.4; O2SAT 93
--- NOTE | 2021-01-06 19:32 | ECG_ITS ---
Measurements Intervals [place] Rate: 72 P: AR: 0 QRS: -87 QRSD: 181 T: 33 QT: 477 QTc: 523 Interpretive Statements ATRIAL FIBRILLATION RIGHT BUNDLE BRANCH BLOCK LEFT ANTERIOR FASCICULAR BLOCK BASELINE ARTIFACT- I, II, V3-V6 ABNORMAL ECG Electronically Signed On 01-07-2021 5:31:52 CDT by Kan Sampson D.O.
--- NOTE | 2021-01-06 19:36 | PC.NURSE ---
portable xray at bedside
[2021-01-06 19:49] LABS: Basophils Absolute Auto 0.1 K/mm3 (0.0-0.1); Basophils Percent Auto 0.3 % (0.2-1.2); Eosinophils Percent Auto 0.2 % (0-4.4); Hematocrit 37.3 % (42.0-52.0); Hemoglobin 11.5 g/dL (14.0-18.0); Immature Granulocyte Absolute 0.23 K/mm3 (0.00-0.031); Immature Granulocyte Percent A 1.3 % (0-0.5); Lymphocytes Absolute Auto 1.64 K/mm3 (0.9-3.2); Lymphocytes Percent Auto 9.4 % (18.3-44.2); Mean Corpuscular HGB Conc 30.8 g/dl (32-36); Mean Corpuscular Hemoglobin 28.3 pg (26-34); Mean Corpuscular Volume 91.6 fl (80-100); Mean Platelet Volume 9.7 fl (7.4-10.4); Monocytes Absolute Auto 1.2 K/mm3 (0.1-0.6); Monocytes Percent Auto 6.7 % (2.6-8.5); Neutrophils Absolute Auto 14.3 K/mm3 (1.3-6.7); Neutrophils Percent Auto 82.1 % (45.5-73.1); Platelet Count Result 283 k/mm3 (150-375); Red Blood Count 4.07 M/mm3 (4.6-6.20); Red Cell Distribution Width 15.9 % (11.5-14.5); White Blood Count 17.4 K/mm3 (4.5-10.0)
[2021-01-06 19:59] LABS: Lactic Acid Reflex 1.4 mmol/L (0.7-2.1)
[2021-01-06 20:08] LABS: Alanine Aminotransferase 20 U/L (4-50); Albumin Level 2.9 g/dL (3.5-5.1); Alkaline Phosphatase 193 U/L (38-126); Anion Gap 6 mmol/L (8-16); Aspartate Amino Transferase 59 U/L (17-59); Bilirubin,Total 0.7 mg/dL (0.2-1.3); Blood Urea Nitrogen 51 mg/dL (9-20); Calcium 8.6 mg/dL (8.4-10.2); Carbon Dioxide 27 mmol/L (22-30); Chloride 101 mmol/L (98-107); Estimated CRCL calculation 42 ml/min; Estimated Glomerular Filt Rate > 60; Glucose 43 mg/dL (65-110); Potassium 3.9 mmol/L (3.4-5.0); Sodium 134 mmol/L (137-145)
[2021-01-06] MEDS: DEXTROSE 50% 25 GM/50 ML SYRINGE (20:13)
[2021-01-06] MEDS: SODIUM CHLORIDE 0.9% IV 1,000 ML 999 ML IV CONT (20:17)
--- NOTE | 2021-01-06 20:40 | ED.GENADULT ---
HPI - General Adult General Chief complaint: Altered Mental Status Stated complaint: altered mental status Time Seen by Provider: 01/06/21 19:23 Source: patient History of Present Illness HPI narrative: Patient is a 85 y/o male sent from [facility] for altered mental status. He is normally not on oxygen. He reportedly had pulse ox of 88% on RA when EMS arrived and was placed on O2 via nasal canula. It's uncertain how long this has been going. Patient is not able to provide any history due to poor mental status. Related Data Home Medications Medication Instructions Recorded Confirmed amlodipine 5 mg PO DAILY 01/06/21 01/07/21 benazepril 10 mg PO DAILY 01/06/21 01/07/21 doxycycline hyclate 100 mg PO BID 01/06/21 01/07/21 duloxetine [Cymbalta] 30 mg PO BID 01/06/21 01/07/21 furosemide 20 mg PO EVERY OTHER DAY 01/06/21 01/07/21 gabapentin 300 mg PO TID 01/06/21 01/07/21 glimepiride 1 mg PO DAILY 01/06/21 01/07/21 hydrocodone-acetaminophen 1 tablet PO Q6H 01/06/21 01/07/21 metformin 1,000 mg PO BID 01/06/21 01/07/21 mirtazapine [Remeron] 15 mg PO HS 01/06/21 01/07/21 silver [BasaDrox] 1 applic TOPICAL Q1-2D PRN 01/06/21 01/07/21 sitagliptin [Januvia] 100 mg PO DAILY 01/06/21 01/07/21 tamsulosin 0.4 mg PO HS 01/06/21 01/07/21 acetaminophen [Tylenol] 650 mg PO Q4-6H PRN 01/07/21 01/07/21 camphor-menthol 1 applic TOPICAL TID PRN 01/07/21 01/07/21 hydrocodone-acetaminophen 1 tablet PO Q6H PRN 01/07/21 01/07/21 Allergies Allergy/AdvReac Type Severity Reaction Status Date / Time dapagliflozin Allergy Unknown increased Verified 12/31/20 18:15 blood sugar Review of Systems Review of Systems: ROS unobtainable: Yes unobtainable due to mental status [facility] Past Medical History Medical History Diabetes mellitus HTN (hypertension) Family History Family History Other Unknown family medical history Social History Social History Social History: Smoking status: Unknown if ever smoked Second hand tobacco smoke exposure: No Alcohol intake: unknown Drinks per week: 2 Substance use: unknown Substance use type: does not use Gender identity (if verbalized by the patient): Male Spiritual care concerns: No Exam Const: General: ill appearing Orientation/consciousness: confusion and lethargic HENMT: Head: normocephalic Ears: external ears normal General nose exam: Normal external nose present Eyes: General: appearance normal, both eyes and all related structures Conjunctivae: conjunctivae normal Neck: Neck: normal visual inspection and full ROM Chest: Chest palpation & inspection: normal inspection of the chest and no tenderness Resp: Effort & Inspection: normal respiratory effort Auscultation: clear to auscultation bilaterally Cardio: Rate: regular rate Rhythm: abnormal rhythm irregularly irregular GI: GI Palp: No abdominal tenderness and Yes Soft to palpation Skin: General skin exam: normal color and turgor normal Neuro: General: confusion Cognition (Neuro): normal cognition Extrem: General: normal to inspection, full ROM and no pedal edema Psych: Appearance: grossly normal Mental Status: mental status grossly normal Affect: normal affect Course Consultations Consultation #1: Discussed with Dr. Rubio, who agrees to admit. Date: 01/06/21 Time: 21:29 Vital Signs Vital signs: Vital Signs Temperature 36.4 C 01/06/21 19:01 Pulse Rate 64 01/06/21 19:01 Respiratory Rate 17 01/06/21 19:01 Blood Pressure 87/50 L 01/06/21 19:01 Pulse Oximetry 93 01/06/21 19:01 Temperature 36.1 C L 01/07/21 08:45 Pulse Rate 60 01/07/21 09:40 Respiratory Rate 18 01/07/21 09:40 Blood Pressure 103/53 L 01/07/21 08:45 Pulse Oximetry 98 01/07/21 09:31 Medical Decision Making Vital Signs Vital Signs:
[2021-01-06 20:52] VITALS: BP 110/69; PULSE 71; RESP 16; O2SAT 100
[2021-01-06 21:09] LABS: Add Urine Microscopic? YES; Appearance Urine Cloudy (Clear); Bacteria Urine Trace /hpf; Bilirubin Urine Negative (Negative); Blood Urine 2+ (Negative); Color Urine Amber (Yellow); Glucose Urine UA Negative (Negative); Ketones Urine Negative (Negative); Leukocyte Esterase Ur 3+ LEU/UL (Negative); Nitrate Urine Negative (Negative); Protein Urine 2+ mg/dL (Negative); Specific Grav Ur 1.013 (1.001-1.035); Urobilinogen Urine Negative mg/dL (<2.0); WBC Urine >75 /hpf
[2021-01-06 21:13] VITALS: O2SAT 95
[2021-01-06 21:14] LABS: NT Pro B Type Natriuretic Pept 16300 pg/mL (5-100)
[2021-01-06 21:31] LABS: Glucose Point of Care 91 mg/dl (65-105)
[2021-01-06] MEDS: SODIUM CHLORIDE 0.9% IV 500 ML 999 ML IV CONT (21:58)
[2021-01-06 22:17] VITALS: BP 91/61; PULSE 70; RESP 16; O2SAT 93
[2021-01-06] MEDS: DEXTROSE 5%/0.45% SOD CHL 1,000 ML 100 ML IV CONT (22:17)
[2021-01-06 22:51] VITALS: BP 100/55; PULSE 73; RESP 22; O2SAT 98
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
[2021-01-06 23:58] VITALS: BP 91/59; PULSE 63; RESP 15; O2SAT 94
[2021-01-07] VITALS (18 sets, daily range): BP systolic 94–106; BP diastolic 52–76; PULSE 53–84; RESP 16–22; TEMP 36.1–36.6; O2SAT 90–100; BMI 22.4
[2021-01-07 00:26] LABS: Glucose Point of Care 79 mg/dl (65-105)
[2021-01-07 00:36] LABS: Troponin I 0.015 ng/mL (0.000-0.034)
--- NOTE | 2021-01-07 00:45 | PC.NURSE ---
This patient, Jean-Pierre Sandra, was admitted to 3 Med Surg Room 332-01 @00:45. Report taken from Brittany DE LOS SANTOS in ED. Patient/family oriented to hospital policies and general routines including ID bracelet, bed and alarms, visiting hours, pain management, procedures, bathroom and other care routines, personal items, smoking policy, room service/diet, and visiting hours. Information on how to activate the Rapid Response Team has been discussed. Patient/Family are encouraged to report perceived risks to care and to ask questions if they do not understand what they are told or what they should do.
[2021-01-07 02:46] LABS: Troponin I 0.015 ng/mL (0.000-0.034)
[2021-01-07] MEDS: DEXTROSE 50% 25 GM/50 ML SYRINGE IV PUSH ×3 (05:35→09:08)
[2021-01-07 05:42] LABS: Glucose Point of Care 51 mg/dl (65-105)
[2021-01-07 05:42] LABS: Glucose Point of Care 86 mg/dl (65-105)
[2021-01-07 07:10] LABS: Basophils Percent Auto 0.3 % (0.2-1.2); Eosinophils Absolute Auto 0.1 K/mm3 (0-0.3); Eosinophils Percent Auto 0.5 % (0-4.4); Hematocrit 37.6 % (42.0-52.0); Hemoglobin 11.3 g/dL (14.0-18.0); Immature Granulocyte Absolute 0.18 K/mm3 (0.00-0.031); Immature Granulocyte Percent A 1.3 % (0-0.5); Lymphocytes Absolute Auto 1.02 K/mm3 (0.9-3.2); Lymphocytes Percent Auto 7.2 % (18.3-44.2); Mean Corpuscular HGB Conc 30.1 g/dl (32-36); Mean Corpuscular Volume 93.3 fl (80-100); Mean Platelet Volume 9.9 fl (7.4-10.4); Monocytes Absolute Auto 1.1 K/mm3 (0.1-0.6); Monocytes Percent Auto 7.8 % (2.6-8.5); Neutrophils Absolute Auto 11.7 K/mm3 (1.3-6.7); Neutrophils Percent Auto 82.9 % (45.5-73.1); Platelet Count Result 295 k/mm3 (150-375); Red Blood Count 4.03 M/mm3 (4.6-6.20); Red Cell Distribution Width 15.9 % (11.5-14.5); White Blood Count 14.2 K/mm3 (4.5-10.0)
[2021-01-07 07:25] LABS: Alanine Aminotransferase 21 U/L (4-50); Albumin Level 2.8 g/dL (3.5-5.1); Alkaline Phosphatase 195 U/L (38-126); Anion Gap 8 mmol/L (8-16); Aspartate Amino Transferase 56 U/L (17-59); Bilirubin,Total 0.5 mg/dL (0.2-1.3); Blood Urea Nitrogen 47 mg/dL (9-20); Calcium 8.4 mg/dL (8.4-10.2); Carbon Dioxide 28 mmol/L (22-30); Chloride 101 mmol/L (98-107); Estimated CRCL calculation 46 ml/min; Estimated Glomerular Filt Rate > 60; Glucose 76 mg/dL (65-110); Potassium 4.1 mmol/L (3.4-5.0); Sodium 137 mmol/L (137-145)
[2021-01-07 07:34] LABS: NT Pro B Type Natriuretic Pept 14800 pg/mL (5-100)
[2021-01-07 09:05] LABS: Glucose Point of Care 54 mg/dl (65-105)
[2021-01-07] MEDS: IPRATROPIUM BR 0.02% INH SOLN 0.5 MG/2.5 ML VIAL INHALATION ×4 (09:31→20:00)
[2021-01-07] MEDS: ALBUTEROL SULFATE NEB 2.5 MG/0.5 ML INH INHALATION ×4 (09:31→20:00)
[2021-01-07 09:37] LABS: Glucose Point of Care 93 mg/dl (65-105)
--- NOTE | 2021-01-07 10:01 | PCRCNOTE ---
Window of time for administration has passed. See next scheduled administration.
--- NOTE | 2021-01-07 11:14 | PM.IMPN ---
Progress Note: A&P Assessment and Plan (1) CHF (congestive heart failure): Qualifiers: Heart failure chronicity: acute on chronic Heart failure type: diastolic Qualified Code(s): I50.33 - Acute on chronic diastolic (congestive) heart failure Code(s): I50.9 - Heart failure, unspecified Status: Acute (2) Open wound of both lower extremities: Code(s): S81.801A - Unspecified open wound, right lower leg, initial encounter; S81.802A - Unspecified open wound, left lower leg, initial encounter Status: Acute (3) Hypoglycemia: Code(s): E16.2 - Hypoglycemia, unspecified Status: Acute (4) Acute respiratory failure with hypoxia: Code(s): J96.01 - Acute respiratory failure with hypoxia Status: Acute (5) Sepsis: Qualifiers: Sepsis acute organ dysfunction status: unspecified Sepsis type: sepsis due to unspecified organism Qualified Code(s): A41.9 - Sepsis, unspecified organism Code(s): A41.9 - Sepsis, unspecified organism Status: Acute Assessment and Plan: 1. Acute decompensation of heart failure CXR on admission showed: Cardiomegaly, pulmonary vascular congestion/redistribution, subpleural edema, bilateral infiltrates, suggesting congestive heart failure pulmonary edema. The congestive changes and infiltrates and prominence of the minor fissure are new findings since 12/31/2020 Elevated BNP of 16,300 on presentation ECHO on 10/30/2020: Left ventricular chamber dimension is mildly enlarged. EF 50-55%. LV diastolic function is abnormal. RV systolic function is moderately reduced. Right ventricular chamber dimension is moderately enlarged. Left and right atrial chamber dimension is moderately enlarged. Moderate aortic valve sclerosis. Mitral valve has moderately calcified annulus. Moderate tricuspid valve regurgitation. Severe pulmonary hypertension, estimated pulmonary arterial systolic pressure is 67 mmHg. Plan - Stop IVF - One time dose of Lasix 40 mg PO today, and assess response and re-dose tomorrow (at home on 20 mg every other day) - Strict I/Os - O2 as needed for hypoxemia - SARS covid test pending. - Isolation precautions 2. Acute hypoxemic resp failure 3. Sepsis: Evidence of bilateral chest x rays concerning for pneumonia with leukocytosis and hypoxemia 4. Acute encephalopathy, likely metabolic in the setting of sepsis/infection/worsening heart failure, and hypoglycemia - Likely contributed to by heart failure as above however bilateral patchy infiltrates on chest x-ray concerning for pneumonia - Currently on Rocephin and azithromycin - WBC improved from yesterday - Has been initiated on incentive spirometry, duoNeb treatments Q4 hrs. - Urine and blood cultures pending 5. Diabetes Mellitus, type 2 6. Hypoglycemia - Patient was found to have hypoglycemia with a glucose level of 43 at admission - Improved to 90s currently - continue regular diet and dietary supplements - His last A1c was 6.1 in October 2020 - Patient takes glimepiride 1 mg daily as well as metformin a 1000 mg b.i.d. as well as Januvia - HOLD these until improved. - Q 4 hour Accu-Cheks 7. Chronic wounds of lower extremity - Stable, appreciate wound care evaluation 8. Laceration to forehead over right eyebrow with sutures intact - Wound is healed, remove sutures today: Went to remove, asked me to do it when his is present, will do tomorrow 9. Hypertension - Hold BP meds as his BP has been on lower side, resume as appropriate 10. Recent GI bleed - Multiple duodenal ulcers thought to be due to NSAID use - Hemoglobin stable - Unclear why is not on PPI-will initiate 11. Atrial fibrillation - Not needing rate control currently - Anticoagulation on hold given recent GI bleed Disposition: Spoke with Danilo at length today, concerned about recent decline in his overall health and mental status over the past few months. Reports decline in his appetite o
[2021-01-07 12:27] LABS: Glucose Point of Care 75 mg/dl (65-105)
[2021-01-07] MEDS: DEXTROSE 10% 1,000 ML 30 ML IV CONT (12:42)
[2021-01-07] MEDS: COLLAGENASE OINT 30 GM TUBE 1 APPLIC TOPICAL (12:42)
[2021-01-07] MEDS: FUROSEMIDE 40 MG TABLET PO (12:42)
[2021-01-07 15:55] LABS: Glucose Point of Care 76 mg/dl (65-105)
[2021-01-07 16:32] LABS: Glucose Point of Care 78 mg/dl (65-105)
[2021-01-07] MEDS: HEPARIN SODIUM 5,000 UNITS/ML VIAL 5000 UNITS SUB-Q (20:12)
[2021-01-07 21:10] LABS: SARS-CoV-2 RNA PCR Negative
[2021-01-07 21:26] LABS: Glucose Point of Care 104 mg/dl (65-105)
[2021-01-08] VITALS (17 sets, daily range): BP systolic 106–140; BP diastolic 59–89; PULSE 56–100; RESP 16–20; TEMP 36.1–36.9; O2SAT 90–95
[2021-01-08 00:12] LABS: Glucose Point of Care 125 mg/dl (65-105)
--- NOTE | 2021-01-08 04:11 | PCRCNOTE ---
Window of time for administration has passed. See next scheduled administration.
[2021-01-08 04:46] LABS: Glucose Point of Care 132 mg/dl (65-105)
[2021-01-08] MEDS: IPRATROPIUM BR 0.02% INH SOLN 0.5 MG/2.5 ML VIAL INHALATION ×5 (05:09→22:01)
[2021-01-08] MEDS: ALBUTEROL SULFATE NEB 2.5 MG/0.5 ML INH INHALATION ×5 (05:09→22:01)
[2021-01-08 06:40] LABS: Basophils Absolute Auto 0.1 K/mm3 (0.0-0.1); Basophils Percent Auto 0.4 % (0.2-1.2); Eosinophils Percent Auto 0.2 % (0-4.4); Hematocrit 36.9 % (42.0-52.0); Hemoglobin 11.4 g/dL (14.0-18.0); Immature Granulocyte Absolute 0.22 K/mm3 (0.00-0.031); Immature Granulocyte Percent A 1.8 % (0-0.5); Lymphocytes Absolute Auto 0.83 K/mm3 (0.9-3.2); Lymphocytes Percent Auto 6.9 % (18.3-44.2); Mean Corpuscular HGB Conc 30.9 g/dl (32-36); Mean Corpuscular Hemoglobin 28.4 pg (26-34); Mean Corpuscular Volume 91.8 fl (80-100); Mean Platelet Volume 10.1 fl (7.4-10.4); Monocytes Absolute Auto 1.1 K/mm3 (0.1-0.6); Monocytes Percent Auto 9.1 % (2.6-8.5); Neutrophils Absolute Auto 9.9 K/mm3 (1.3-6.7); Neutrophils Percent Auto 81.6 % (45.5-73.1); Platelet Count Result 266 k/mm3 (150-375); Red Blood Count 4.02 M/mm3 (4.6-6.20); White Blood Count 12.1 K/mm3 (4.5-10.0)
[2021-01-08 07:04] LABS: NT Pro B Type Natriuretic Pept 18800 pg/mL (5-100)
[2021-01-08 07:10] LABS: Alanine Aminotransferase 20 U/L (4-50); Albumin Level 2.8 g/dL (3.5-5.1); Alkaline Phosphatase 229 U/L (38-126); Anion Gap 8 mmol/L (8-16); Aspartate Amino Transferase 50 U/L (17-59); Bilirubin,Total 0.7 mg/dL (0.2-1.3); Blood Urea Nitrogen 34 mg/dL (9-20); Calcium 8.5 mg/dL (8.4-10.2); Carbon Dioxide 28 mmol/L (22-30); Chloride 101 mmol/L (98-107); Estimated CRCL calculation 63 ml/min; Estimated Glomerular Filt Rate > 60; Glucose 124 mg/dL (65-110); Potassium 3.6 mmol/L (3.4-5.0); Sodium 137 mmol/L (137-145)
--- NOTE | 2021-01-08 08:00 | ECG_ITS ---
Measurements Intervals [place] Rate: 74 P: MT: 0 QRS: 263 QRSD: 159 T: -79 QT: 458 QTc: 508 Interpretive Statements ATRIAL FIBRILLATION FREQUENT VENTRICULAR PREMATURE COMPLEXES RIGHT BUNDLE BRANCH BLOCK LEFT ANTERIOR FASCICULAR BLOCK BASELINE ARTIFACT- I, II, III, AVR, AVL, AVF, V5-V6 ABNORMAL ECG Electronically Signed On 01-08-2021 9:50:29 CDT by Kan Sampson D.O.
[2021-01-08 08:02] LABS: Glucose Point of Care 139 mg/dl (65-105)
--- NOTE | 2021-01-08 09:02 | WPDCDIQUERY2 ---
CDI Query Clarification Request -01/06 urine culture growing >100,000 E coli -Possible UTI documented in H&P -Sepsis: evidence of bilateral CXR concerning for pneumonia with leukocytosis and hypoxemia has been documented. SOFA score 2 (GCS 13 on arrival and BP MAP <70) -Ceftriaxone and Zithromax one time dose given in ED but not continued. Please clarify if UTI has been ruled in or ruled out. Please clarify if pneumonia has been ruled in or ruled out. <Nidia Garcia RN - Last Filed: 01/08/21 09:16>
--- NOTE | 2021-01-08 09:50 | PCOTNOTE ---
Attempted OT evaluation, despite education of benefits of participating with therapy, patient reports does not want therapy at this time. Will follow and attempt at later time.
[2021-01-08] MEDS: HEPARIN SODIUM 5,000 UNITS/ML VIAL 5000 UNITS SUB-Q ×2 (10:17→22:36)
[2021-01-08] MEDS: FUROSEMIDE 20 MG TABLET PO (10:18)
[2021-01-08] MEDS: PANTOPRAZOLE 40 MG TABLET PO (10:18)
[2021-01-08] MEDS: COLLAGENASE OINT 30 GM TUBE 1 APPLIC TOPICAL (10:19)
[2021-01-08 12:39] LABS: Glucose Point of Care 141 mg/dl (65-105)
[2021-01-08] MEDS: ACETAMINOPHEN 325 MG TABLET 650 MG PO (12:53)
--- NOTE | 2021-01-08 13:14 | PM.IMPN ---
Progress Note: A&P Assessment and Plan (1) Sepsis: Qualifiers: Sepsis acute organ dysfunction status: unspecified Sepsis type: sepsis due to unspecified organism Qualified Code(s): A41.9 - Sepsis, unspecified organism Code(s): A41.9 - Sepsis, unspecified organism Status: Acute (2) CHF (congestive heart failure): Qualifiers: Heart failure chronicity: acute on chronic Heart failure type: diastolic Qualified Code(s): I50.33 - Acute on chronic diastolic (congestive) heart failure Code(s): I50.9 - Heart failure, unspecified Status: Acute (3) Multiple wounds of skin: Code(s): T14.8XXA - Other injury of unspecified body region, initial encounter Status: Acute (4) Acute respiratory failure with hypoxia: Code(s): J96.01 - Acute respiratory failure with hypoxia Status: Acute Additional Plan 1. Acute decompensation of heart failure CXR on admission showed: Cardiomegaly, pulmonary vascular congestion/redistribution, subpleural edema, bilateral infiltrates, suggesting congestive heart failure pulmonary edema. The congestive changes and infiltrates and prominence of the minor fissure are new findings since 12/31/2020 Elevated BNP of 16,300 on presentation ECHO on 10/30/2020: Left ventricular chamber dimension is mildly enlarged. EF 50-55%. LV diastolic function is abnormal. RV systolic function is moderately reduced. Right ventricular chamber dimension is moderately enlarged. Left and right atrial chamber dimension is moderately enlarged. Moderate aortic valve sclerosis. Mitral valve has moderately calcified annulus. Moderate tricuspid valve regurgitation. Severe pulmonary hypertension, estimated pulmonary arterial systolic pressure is 67 mmHg. Plan - Stop IVF - One time dose of Lasix 40 mg PO today, and assess response and re-dose as needed - Strict I/Os - O2 as needed for hypoxemia - SARS covid test negative, ruled out 2. Acute hypoxemic resp failure 3. Sepsis: Evidence of bilateral chest x rays concerning for pneumonia with leukocytosis and hypoxemia 4. Acute encephalopathy, likely metabolic in the setting of sepsis/infection/worsening heart failure, and hypoglycemia - Likely contributed to by heart failure as above however bilateral patchy infiltrates on chest x-ray concerning for pneumonia - Currently on Rocephin and azithromycin, however given resistant E coli in urine, will transition to Levofloxacin for urine and resp coverage, he is improving from resp standpoint - WBC improved from yesterday - Has been initiated on incentive spirometry, duoNeb treatments Q4 hrs. - Urine and blood cultures pending 5. Diabetes Mellitus, type 2 6. Hypoglycemia - Patient was found to have hypoglycemia with a glucose level of 43 at admission - Hypoglycemia now resolved - continue regular diet and dietary supplements - His last A1c was 6.1 in October 2020 - Patient takes glimepiride 1 mg daily as well as metformin a 1000 mg b.i.d. as well as Januvia - HOLD these until improved. - Q 4 hour Accu-Cheks 7. Chronic wounds of lower extremity and decubitus ulcer - Stable, appreciate wound care evaluation 8. Laceration to forehead over right eyebrow with sutures intact - Wound is healed, remove sutures today: Went to remove, asked me to do it when his is present, will do tomorrow 9. Hypertension - Hold BP meds as his BP has been on lower side, resume as appropriate 10. Recent GI bleed - Multiple duodenal ulcers thought to be due to NSAID use - Hemoglobin stable - Unclear why is not on PPI-will initiate 11. Atrial fibrillation - Not needing rate control currently - Anticoagulation on hold given recent GI bleed 12. Urinary tract infection - E coli resistant to multiple agents, sensitive to Levofloxacin, initiated, maybe contributing to his altered mental status Disposition: Spoke with Danilo at length yesterday and today, concerned about recent decline in his overall he
--- NOTE | 2021-01-08 14:03 | PCOTNOTE ---
Attempted OT evaluation, despite education on benefits of working with therapy patient reports he does not want to work with therapy at this time. Patient's spouse requested we attempt therapy tomorrow. Will follow and attempt OT evaluation in AM.
[2021-01-08] MEDS: oxyCODONE HCL (*CRX) 5 MG TAB IR PO (15:03)
[2021-01-08] MEDS: FUROSEMIDE 40 MG TABLET PO (15:07)
[2021-01-08 16:48] LABS: Glucose Point of Care 209 mg/dl (65-105)
[2021-01-08] MEDS: DEXTROSE 10% 1,000 ML 30 ML IV CONT (22:42)
[2021-01-08 22:46] LABS: Glucose Point of Care 168 mg/dl (65-105)
[2021-01-09] VITALS (14 sets, daily range): BP systolic 114–123; BP diastolic 53–66; PULSE 63–98; RESP 16–20; TEMP 36.3–36.6; O2SAT 92–99
--- NOTE | 2021-01-09 00:07 | PCRCNOTE ---
Pt refused midnight neb treatment. Was adamant that he did not want one until the morning. Lungs sounded clear, no wheezing.
[2021-01-09 00:36] LABS: Glucose Point of Care 186 mg/dl (65-105)
[2021-01-09 04:55] LABS: Glucose Point of Care 149 mg/dl (65-105)
--- NOTE | 2021-01-09 05:43 | PCRCNOTE ---
Nebulizer treatment scheduled for 04:00 not administered due to patient emergencies in other areas of the hospital.
[2021-01-09 07:05] LABS: Basophils Absolute Auto 0.1 K/mm3 (0.0-0.1); Basophils Percent Auto 0.4 % (0.2-1.2); Eosinophils Absolute Auto 0.1 K/mm3 (0-0.3); Eosinophils Percent Auto 0.5 % (0-4.4); Hematocrit 38.4 % (42.0-52.0); Hemoglobin 11.7 g/dL (14.0-18.0); Immature Granulocyte Absolute 0.25 K/mm3 (0.00-0.031); Immature Granulocyte Percent A 2.1 % (0-0.5); Lymphocytes Absolute Auto 1.27 K/mm3 (0.9-3.2); Lymphocytes Percent Auto 10.6 % (18.3-44.2); Mean Corpuscular HGB Conc 30.5 g/dl (32-36); Mean Corpuscular Hemoglobin 27.5 pg (26-34); Mean Corpuscular Volume 90.1 fl (80-100); Mean Platelet Volume 9.9 fl (7.4-10.4); Monocytes Absolute Auto 1.2 K/mm3 (0.1-0.6); Monocytes Percent Auto 10.2 % (2.6-8.5); Neutrophils Absolute Auto 9.1 K/mm3 (1.3-6.7); Neutrophils Percent Auto 76.2 % (45.5-73.1); Platelet Count Result 268 k/mm3 (150-375); Red Blood Count 4.26 M/mm3 (4.6-6.20); Red Cell Distribution Width 15.8 % (11.5-14.5)
[2021-01-09 07:24] LABS: Alanine Aminotransferase 22 U/L (4-50); Albumin Level 2.8 g/dL (3.5-5.1); Alkaline Phosphatase 226 U/L (38-126); Anion Gap 8 mmol/L (8-16); Aspartate Amino Transferase 44 U/L (17-59); Bilirubin,Total 0.7 mg/dL (0.2-1.3); Blood Urea Nitrogen 22 mg/dL (9-20); Calcium 8.4 mg/dL (8.4-10.2); Carbon Dioxide 26 mmol/L (22-30); Chloride 101 mmol/L (98-107); Estimated CRCL calculation 73 ml/min; Estimated Glomerular Filt Rate > 60; Glucose 127 mg/dL (65-110); Potassium 3.3 mmol/L (3.4-5.0); Sodium 135 mmol/L (137-145)
--- NOTE | 2021-01-09 07:24 | PM.IMPN ---
Progress Note: A&P Assessment and Plan (1) Sepsis: Qualifiers: Sepsis acute organ dysfunction status: unspecified Sepsis type: sepsis due to unspecified organism Qualified Code(s): A41.9 - Sepsis, unspecified organism Code(s): A41.9 - Sepsis, unspecified organism Status: Acute Assessment and Plan: -he bravo on Rocephin and azithromycin, however given resistant E coli in urine he was transitioned to levofloxacin. - WBC improved from yesterday - Has been initiated on incentive spirometry, duoNeb treatments Q4 hrs. -continue to follow cultures. (2) CHF (congestive heart failure): Qualifiers: Heart failure chronicity: acute on chronic Heart failure type: diastolic Qualified Code(s): I50.33 - Acute on chronic diastolic (congestive) heart failure Code(s): I50.9 - Heart failure, unspecified Status: Acute Assessment and Plan: 1. Acute decompensation of heart failure CXR on admission showed: Cardiomegaly, pulmonary vascular congestion/redistribution, subpleural edema, bilateral infiltrates, suggesting congestive heart failure pulmonary edema. The congestive changes and infiltrates and prominence of the minor fissure are new findings since 12/31/2020 Elevated BNP of 16,300 on presentation ECHO on 10/30/2020: Left ventricular chamber dimension is mildly enlarged. EF 50-55%. LV diastolic function is abnormal. RV systolic function is moderately reduced. Right ventricular chamber dimension is moderately enlarged. Left and right atrial chamber dimension is moderately enlarged. Moderate aortic valve sclerosis. Mitral valve has moderately calcified annulus. Moderate tricuspid valve regurgitation. Severe pulmonary hypertension, estimated pulmonary arterial systolic pressure is 67 mmHg. Plan Continue his home dose of Lasix p.o. at 20 mg. Continue to give Lasix intermittently based on his fluid status. - Strict I/Os - O2 as needed for hypoxemia - SARS covid test came back as negative. - Isolation precautions have been discontinued. (3) Multiple wounds of skin: Code(s): T14.8XXA - Other injury of unspecified body region, initial encounter Status: Acute Assessment and Plan: 7. Chronic wounds of lower extremity - Stable, appreciate wound care evaluation 8. Laceration to forehead over right eyebrow with sutures intact - Wound is healed, suture removal (4) Acute respiratory failure with hypoxia: Code(s): J96.01 - Acute respiratory failure with hypoxia Status: Acute Assessment and Plan: He was requiring oxygen at the time of presentation but now on room air. Oxygen inhalation on D5 saturation is less than 90%. (5) Hypoglycemia: Code(s): E16.2 - Hypoglycemia, unspecified Status: Acute Assessment and Plan: - Patient was found to have hypoglycemia with a glucose level of 43 at admission - Improved to 90s currently - continue regular diet and dietary supplements - His last A1c was 6.1 in October 2020 - Patient takes glimepiride 1 mg daily as well as metformin a 1000 mg b.i.d. as well as Januvia - HOLD these until improved. - Q 4 hour Accu-Cheks (6) UTI (urinary tract infection): Qualifiers: Hematuria presence: without hematuria Urinary tract infection type: site unspecified Qualified Code(s): N39.0 - Urinary tract infection, site not specified Code(s): N39.0 - Urinary tract infection, site not specified Status: Acute Assessment and Plan: - E coli resistant to multiple agents, sensitive to Levofloxacin, initiated, maybe contributing to his altered mental status (7) Atrial fibrillation: Code(s): I48.91 - Unspecified atrial fibrillation Status: Acute Assessment and Plan: - Not needing rate control currently - Anticoagulation on hold given recent GI bleed (8) Duodenal ulcer due to nonsteroidal anti-inflammatory drug (NSAID): Code(s): K26.9 - Duodenal ulce
--- NOTE | 2021-01-09 08:14 | PC.NURSE ---
to xray per stretcher
[2021-01-09] MEDS: IPRATROPIUM BR 0.02% INH SOLN 0.5 MG/2.5 ML VIAL INHALATION ×4 (09:28→21:24)
[2021-01-09] MEDS: ALBUTEROL SULFATE NEB 2.5 MG/0.5 ML INH INHALATION ×4 (09:28→21:24)
[2021-01-09] MEDS: FUROSEMIDE 20 MG TABLET PO (10:02)
[2021-01-09] MEDS: HEPARIN SODIUM 5,000 UNITS/ML VIAL 5000 UNITS SUB-Q ×2 (10:02→20:37)
[2021-01-09] MEDS: PANTOPRAZOLE 40 MG TABLET PO (10:02)
--- NOTE | 2021-01-09 10:22 | PCOTNOTE ---
Attempted OT evaluation, Patient reports in to much pain at this time to participate in therapy, will follow and attempt at later time.
[2021-01-09] MEDS: COLLAGENASE OINT 30 GM TUBE 1 APPLIC TOPICAL (11:30)
[2021-01-09] MEDS: ACETAMINOPHEN 325 MG TABLET 650 MG PO (11:30)
[2021-01-09 12:15] LABS: Glucose Point of Care 145 mg/dl (65-105)
[2021-01-09] MEDS: oxyCODONE HCL (*CRX) 5 MG TAB IR PO (14:43)
[2021-01-09 15:33] LABS: Glucose Point of Care 142 mg/dl (65-105)
[2021-01-09] MEDS: DEXTROSE 5%/0.45% SOD CHL 1,000 ML 75 ML IV CONT (16:37)
[2021-01-09] MEDS: POTASSIUM CHLORIDE 20 MEQ PACKET (FOR LIQUID) 40 MEQ PO ×2 (16:38→20:37)
[2021-01-09 18:02] LABS: Glucose Point of Care 155 mg/dl (65-105)
[2021-01-09 20:46] LABS: Glucose Point of Care 142 mg/dl (65-105)
[2021-01-10] VITALS (8 sets, daily range): BP systolic 125; BP diastolic 54; PULSE 66–87; RESP 18–22; TEMP 36.3; O2SAT 94–96
[2021-01-10] MEDS: IPRATROPIUM BR 0.02% INH SOLN 0.5 MG/2.5 ML VIAL INHALATION ×3 (00:10→09:59)
[2021-01-10] MEDS: ALBUTEROL SULFATE NEB 2.5 MG/0.5 ML INH INHALATION ×3 (00:11→09:59)
[2021-01-10] MEDS: oxyCODONE HCL (*CRX) 5 MG TAB IR PO ×2 (05:35→14:15)
[2021-01-10 05:45] LABS: Glucose Point of Care 142 mg/dl (65-105)
[2021-01-10 06:47] LABS: Basophils Percent Auto 0.4 % (0.2-1.2); Eosinophils Percent Auto 0.4 % (0-4.4); Hematocrit 36.8 % (42.0-52.0); Hemoglobin 11.6 g/dL (14.0-18.0); Immature Granulocyte Absolute 0.25 K/mm3 (0.00-0.031); Immature Granulocyte Percent A 2.3 % (0-0.5); Lymphocytes Percent Auto 10.8 % (18.3-44.2); Mean Corpuscular HGB Conc 31.5 g/dl (32-36); Mean Corpuscular Hemoglobin 28.2 pg (26-34); Mean Corpuscular Volume 89.5 fl (80-100); Mean Platelet Volume 9.9 fl (7.4-10.4); Monocytes Absolute Auto 1.1 K/mm3 (0.1-0.6); Monocytes Percent Auto 10.3 % (2.6-8.5); Neutrophils Absolute Auto 8.4 K/mm3 (1.3-6.7); Neutrophils Percent Auto 75.8 % (45.5-73.1); Platelet Count Result 268 k/mm3 (150-375); Red Blood Count 4.11 M/mm3 (4.6-6.20); Red Cell Distribution Width 15.7 % (11.5-14.5); White Blood Count 11.1 K/mm3 (4.5-10.0)
[2021-01-10] MEDS: COLLAGENASE OINT 30 GM TUBE 1 APPLIC TOPICAL (08:42)
[2021-01-10] MEDS: FUROSEMIDE 20 MG TABLET PO (08:42)
[2021-01-10] MEDS: HEPARIN SODIUM 5,000 UNITS/ML VIAL 5000 UNITS SUB-Q (08:42)
[2021-01-10] MEDS: PANTOPRAZOLE 40 MG TABLET PO (08:42)
--- NOTE | 2021-01-10 12:03 | PM.DS ---
DS: Admitting Diagnosis Admitting Diagnosis Congestive heart failure Suspected COVID-19 Pneumonia Failure to thrive Generalized weakness Hypoglycemia Fall Multiple wounds on the right and left lower extremity DS: Discharge Diagnosis Discharge Diagnosis (1) Sepsis: Qualifiers: Sepsis acute organ dysfunction status: unspecified Sepsis type: sepsis due to unspecified organism Qualified Code(s): A41.9 - Sepsis, unspecified organism Code(s): A41.9 - Sepsis, unspecified organism Status: Acute Assessment and Plan: -he bravo on Rocephin and azithromycin, however given resistant E coli in urine he was transitioned to levofloxacin. He will be discharged on levofloxacin for further 4 days. He will be on Florastor as well. - WBC improved - Has been initiated on incentive spirometry, duoNeb treatments Q4 hrs. -continue to follow cultures. (2) CHF (congestive heart failure): Qualifiers: Heart failure chronicity: acute on chronic Heart failure type: diastolic Qualified Code(s): I50.33 - Acute on chronic diastolic (congestive) heart failure Code(s): I50.9 - Heart failure, unspecified Status: Acute Assessment and Plan: 1. Acute decompensation of heart failure CXR on admission showed: Cardiomegaly, pulmonary vascular congestion/redistribution, subpleural edema, bilateral infiltrates, suggesting congestive heart failure pulmonary edema. The congestive changes and infiltrates and prominence of the minor fissure are new findings since 12/31/2020 Elevated BNP of 16,300 on presentation ECHO on 10/30/2020: Left ventricular chamber dimension is mildly enlarged. EF 50-55%. LV diastolic function is abnormal. RV systolic function is moderately reduced. Right ventricular chamber dimension is moderately enlarged. Left and right atrial chamber dimension is moderately enlarged. Moderate aortic valve sclerosis. Mitral valve has moderately calcified annulus. Moderate tricuspid valve regurgitation. Severe pulmonary hypertension, estimated pulmonary arterial systolic pressure is 67 mmHg. Plan Continue his home dose of Lasix p.o. at 20 mg. He did not need any IV Lasix while he remained in the hospital. - Strict I/Os - O2 as needed for hypoxemia. He initially required 2 L of oxygen supplementation at the time of presentation but later he was weaned down to room air and he remained on room air. - SARS covid test came back as negative. - Isolation precautions have been discontinued. (3) Multiple wounds of skin: Code(s): T14.8XXA - Other injury of unspecified body region, initial encounter Status: Acute Assessment and Plan: 7. Chronic wounds of lower extremity - Stable, appreciate wound care evaluation 8. Laceration to forehead over right eyebrow with sutures intact - Wound is healed (4) Acute respiratory failure with hypoxia: Code(s): J96.01 - Acute respiratory failure with hypoxia Status: Acute Assessment and Plan: He was requiring oxygen at the time of presentation but now on room air. Oxygen inhalation if saturation is less than 90%. (5) Hypoglycemia: Code(s): E16.2 - Hypoglycemia, unspecified Status: Acute Assessment and Plan: - Patient was found to have hypoglycemia with a glucose level of 43 at admission - Improved - continue regular diet and dietary supplements - His last A1c was 6.1 in October 2020 - Patient takes glimepiride 1 mg daily as well as metformin a 1000 mg b.i.d. as well as Januvia -both these 2 medication were put on hold. His glimepiride will be stopped. He will be discharged on Januvia only. - Q 4 hour Accu-Cheks (6) UTI (urinary tract infection): Qualifiers: Hematuria presence: without hematuria Urinary tract infection type: site unspecified Qualified Code(s): N39.0 - Urinary tract infection, site not specified Code(s): N39.0 - Urinary tract infection, site not specified
== END 2021-01-10 14:50 | disposition hospice, home (50) | DRG 871 ==
LOC: ANHED 20:16 → ANH3MEDSUR 01-07 03:18
PROVIDERS: Nurse Practitioner; Physician Assistant; Admitting Provider Internal Medicine; Emergency Provider Emergency Medicine; PCP Family Medicine; Visit Provider Internal Medicine Nephrology
DX: A41.9 Sepsis, unspecified organism (principal); I50.33 Acute on chronic diastolic (congestive) heart failure; J96.01 Acute respiratory failure with hypoxia; G93.41 Metabolic encephalopathy; J18.9 Pneumonia, unspecified organism; N39.0 Urinary tract infection, site not specified; I48.11 Longstanding persistent atrial fibrillation; Z20.822 Contact with and (suspected) exposure to COVID-19; E11.649 Type 2 diabetes mellitus with hypoglycemia without coma; K26.9 Duodenal ulcer, unspecified as acute or chronic, without hemorrhage or perforation
CPT/HCPCS: 36415; 70450; 71045; 71046; 80053; 81001; 82948; 83605; 83880; 84484; 85025; 87040; 87077; 87086; 87088; 87186; 93005; 94640; 96361; 96365; 96367; 96375; 97163; 99285; A9270; C9803; J0456; J0696; J1644; J1956; J7030; J7040; J7060; U0003; U0005